=== PATIENT | male | born 1960 | race African-American/Black ===

== ENCOUNTER → 2017-02-17 | Outpatient (CLI) | payer BC ==
--- NOTE | 2017-02-17 08:40 | RAD ---
Indication:Abnormal liver function tests Grayscale images of the abdomen were obtained. Comparison none Liver:The visualized liver appeared unremarkable. Gallbladder:Occasional cholesterol crystals were seen. No cholelithiasis was seen. The common bile duct diameter of approximately 4 mm is normal Spleen:Largely obscured. Pancreas:That portion of the head and body of the pancreas which are seen appear unremarkable. The more distal body and tail were obscured Kidneys:Normal Abdominal aorta and IVC:As visualized normal Ancillary findings:None Impression:Cholesterol crystals. Nonvisualization of the spleen. No acute or definite significant findings seen in the abdomen
== END | disposition home or self-care (01) ==
LOC: US 06:23
PROVIDERS: ATTEND Internal Medicine
DX: R79.89 Other specified abnormal findings of blood chemistry (principal)
CPT/HCPCS: 76700

== ENCOUNTER → 2018-10-25 | Outpatient (CLI) | payer BC ==
[~2018-10-25] MED LIST: AMLO5TAB10 PO; CONTRAST GIVEN. MC PRN; HYDR-2761 PO; IOHEXOL 240 MG/ML 50ML VIAL. PO ONE; IOHEXOL 300 MG/ML 100ML VIAL. IV ONE; OXYC1TAB15 PO; PANT40TA77 PO; SUCR1TAB35 PO; TRAM100C3 PO; TRAM50TA PO
--- NOTE | 2018-10-26 09:37 | RAD ---
CT of the chest, abdomen and pelvis with contrast, 10/25/2018: HISTORY: Splenomegaly Multidetector CT imaging was performed following oral and IV administration of contrast. There is minimal calcific plaquing of the thoracic aorta without evidence of aneurysm. Minimal coronary artery calcification is present. No mediastinal or hilar adenopathy is seen. No pulmonary mass or consolidation is seen. There is no evidence of pleural fluid. There is a large mass in the left upper quadrant of the abdomen. It measures approximately 14.9 cm in greatest width, 11.3 cm in greatest AP dimension and 17.4 cm in craniocaudad extent. It is a predominately solid mass with a somewhat irregular central cystic component. It is displacing the stomach laterally and anteriorly. It cannot be from the posterior gastric wall. A gastric origin is thought to be most likely. The pancreatic body and tail cannot be from this mass. The mass does not appear to arise from the left kidney or spleen. No hepatic abnormality is detected. The gallbladder is unremarkable. The pancreatic head shows no abnormality. The kidneys show no intrinsic abnormality. There is a 1.8 cm left adrenal nodule. The right adrenal gland is unremarkable. There is mild aortoiliac calcific plaquing without evidence of aneurysm. No definite retroperitoneal, mesenteric or pelvic adenopathy is seen. The bowel loops are not dilated. Several small colonic diverticula are noted. There are prominent mesenteric veins in the upper abdomen demonstrate over this mass. No free air or free fluid is evident in the abdomen or pelvis. There are mild scattered degenerative changes in the spine. A small sclerotic focus in the right femoral head is probably a benign bone island. IMPRESSION: 1. Large left upper quadrant abdominal mass as described above. 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 A pancreatic origin is less likely. Endoscopic or CT-guided biopsy is suggested for further evaluation. 2. Mild nonspecific left adrenal enlargement. Note: Personnel in Dr. Valle's office were notified of these findings at 9:33 AM on 10/26/2018. PQRS Compliance Statement: One or more of the following individualized dose reduction techniques were utilized for this examination: 1. Automated exposure control 2. Adjustment of the mA and/or kV according to patient size 3. Use of iterative reconstruction technique Electronically signed by: Yahir Avery MD (10/26/2018 9:34 AM) [facility]
== END | disposition home or self-care (01) ==
LOC: CT 12:51
PROVIDERS: ATTEND Internal Medicine
DX: C49.A0 Gastrointestinal stromal tumor, unspecified site (principal); R16.1 Splenomegaly, not elsewhere classified; E27.9 Disorder of adrenal gland, unspecified
CPT/HCPCS: 71260; 74177; Q9966; Q9967

== ENCOUNTER 2018-11-14 11:00 | Inpatient (IN) | payer BC ==
[~2018-11-14] VITALS: Ht 188 cm; Wt 87.0 kg
[2018-11-14] VITALS (8 sets, daily range): BP systolic 102–132; BP diastolic 56–69
[~2018-11-14 11:00] MED LIST changes: -CONTRAST GIVEN. MC PRN; +DEXAMETHASONE SOD PHOS 20 MG/5 ML VIAL. ONE; +HYDROmorphone 2 MG/ML VIAL IV PRN; -IOHEXOL 240 MG/ML 50ML VIAL. PO ONE; -IOHEXOL 300 MG/ML 100ML VIAL. IV ONE; +IV RINGERS,LACTATED 1000ML 1,000 ML IV SCH; +LIDOCAINE 2% PF 5 ML VIAL. ONE; +MORPHINE SULFATE 2 MG/ML VIAL. IV PRN; +ONDANSETRON PF 4 MG/2 ML VIAL. IV PRN; +ONDANSETRON PF 4 MG/2 ML VIAL. ONE; -OXYC1TAB15 PO; +PHENYLEPHRINE in 0.9% NACL PF 1 MG/10 ML SYRINGE. IV ONE; +PROCHLORPERAZINE 10 MG/2 ML VIAL. IV PRN; +PROPOFOL 20 ML IV ONE; +ROCURONIUM 100 MG/10 ML VIAL. ONE; +ePHEDrine PF IN SALINE 50 MG/10 ML SYRINGE. IV ONE; +fentaNYL PF VIAL 100 MCG/2 ML VIAL IV PRN
--- NOTE | 2018-11-14 12:38 | PDOC ---
SURGICAL PROGRESS NOTE Subjective 58 yo M with large abd mass TO OR for resection, possible distal pancreatectomy, splenectomy, possible gastrectomy. R/R/B/A d/w pt and pt's supportive son in law and daughter. Risks, including, but not limited to: bleeding, infection, damage to surrounding structures, risk of anesthesia, risk of . They appear to understand, their questions are answered and they elect to proceed. Office note H&P reviewed and unchanged. Vital Signs Vital Signs Date Time Temp Pulse Resp B/P (MAP) Pulse Ox O2 Delivery O2 Flow Rate FiO2 11/14/18 11:42 97.6 115 20 130/80 98 97.6 SOLIS PARKER MD Nov 14, 2018 12:38
[2018-11-14] MEDS ORDERED: BUPIVACAINE MPF 0.25% 10 ML VIAL. ONE (12:46)
[2018-11-14] MEDS ORDERED: MIDAZOLAM HCL/PF 2 MG/2 ML VIAL. ONE (12:46)
[2018-11-14] MEDS ORDERED: NALOXONE 0.4 MG/ML VIAL. IV PRN ×2 (13:45→18:45)
[2018-11-14] MEDS ORDERED: ONDANSETRON PF 4 MG/2 ML VIAL. IV PRN ×2 (13:45→18:45)
[2018-11-14] MEDS ORDERED: diphenhydrAMINE 50 MG/ML VIAL IV PRN (13:45)
[2018-11-14] MEDS ORDERED: NALBUPHINE 10 MG/ML AMPUL. IV PRN (13:45)
[2018-11-14] MEDS ORDERED: SEVOFLURANE > 120 MINUTES. IH ONE (14:04)
[2018-11-14] MEDS ORDERED: BUPIVACAINE MPF 0.25% 30 ML VIAL. ONE (14:12)
[2018-11-14] MEDS ORDERED: ROCURONIUM 100 MG/10 ML VIAL. ONE (15:16)
[2018-11-14 15:19] LABS: BILIRUBIN,URINE SMALL (NEG); CLARITY,URINE CLEAR; COLOR,URINE YELLOW; NITRITE,URINE NEGATIVE (NEG); PROTEIN,URINE 100 mg/dL (NEG-TRACE); UROBILINOGEN,URINE 0.2 mg/dL (0.2 mg/dL)
[2018-11-14 15:26] LABS: BACTERIA,URINE 0 /HPF (0-FEW); HYALINE CASTS, URINE FEW /HPF; SQUAMOUS EPITHELIAL CELL,UR FEW /LPF
[2018-11-14] MEDS ORDERED: ALBUMIN HUMAN 5% 500 ML IV ONE ×2 (15:48→15:49)
[2018-11-14] MEDS ORDERED: cefOXitin SODIUM IV Push 2 GM VIAL. IVP PRN ×2 (16:00→18:00)
[2018-11-14] MEDS ORDERED: PHENYLEPHRINE in 0.9% NACL PF 1 MG/10 ML SYRINGE. IV ONE (16:14)
[2018-11-14] MEDS ORDERED: SURGICEL HEMOSTAT 4X8 EACH. ONE ×2 (16:15)
[2018-11-14 17:11] LABS: HEMATOCRIT 22.2 % (39.0-53.0); WHITE BLOOD COUNT 15.9 x10^3/uL (4.0-11.0)
[2018-11-14 17:13] LABS: HEMOGLOBIN 7.3 g/dL (13.0-17.5)
[2018-11-14] MEDS ORDERED: ONDANSETRON PF 4 MG/2 ML VIAL. ONE (17:17)
[2018-11-14] MEDS ORDERED: GLYCOPYRROLATE 1 MG/5 ML VIAL. ONE (17:19)
[2018-11-14] MEDS ORDERED: NEOSTIGMINE METHYLSULFATE 5 MG/5 ML SYRINGE. ONE (17:19)
--- NOTE | 2018-11-14 18:30 | NUR ---
Patient admitted to room 105 from surgery. Patient recovered from surgery in room. Hand off report received bedside from Ana Vick. VS wnl. Family at bedside. Will continue to monitor.
[2018-11-14] MEDS ORDERED: IV NORMAL SALINE 1000ML BAG 1,000 ML IV SCH (18:33)
[2018-11-14] MEDS ORDERED: 0.9 % SODIUM CHLORIDE 10 ML DISP.SYRIN. IV PRN (18:45)
--- NOTE | 2018-11-14 18:55 | PDOC4 ---
OPERATIVE NOTE Date: Date: Nov 14, 2018 Pre-Op Diagnosis: Left upper quadrant mass, large, neuroendocrine tumor (by biopsy) Post-Op Diagnosis: same Procedure Performed: Exploratory laparotomy, en bloc excision of large LUQ mass, distal pancreatectomy/splenectomy, ligation of inferior mesenteric vein Surgeon: Rogelio Parker Asst: Dr. Juvenal Jj Anesthesia Type: GETA Blood Loss: 2500 Specimans Obtained: LUQ mass, including spleen and distal pancreas, small mass overlying kidney, additional necrotic tissue Findings: large LUQ mass, appearing to originate from distal pancreas, but very adherent to posterior stomach, invading ligament of treitz/transverse mesocolon, gastrohepatic ligament Complications: none Operative Note: After obtaining informed consent, patient was taken to OR, induced under GETA and prepped in the usual fashion. Midline incision made with cautery. Large mass encountered in LUQ, posterior to stomach. Extensive congestion of venous structures in this area. An extensive dissection was performed, which was difficult throughout. Lesser sac entered by dividing omentum along the greater curvature, but maintaining vascular structures along the greater curve. Mass fill the lesser sac, very adherent, but not obviously invading: posterior stomach, gastrohepatic ligament, ligament of treitz, and appeared to originate from distal pancreas. Careful dissection off posterior stomach. 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 Ligasure used to take off attachments of the spleen and the mass to the retroperitoneum ( no obvious compromise of adrenal gland, kidney or associated vessels). Aorto maintained intact. Splenic flexure of colon closely associated with mass and carefully dissected off. Multiple serousal tears, inherent to procedure, repaired with 3 0 vicryl. Ligament of treitz widely involved by this process and was completely cleared. Distal duodenum carefully dissected off, without obvious violation. Inferior mesenteric vein intimately involved and was ultimately sacrificed and ligated with 0 vicryl stick tie. Pancreas at the neck and just to left of superior mesenteric vein was not involve and soft and viable. LACY stapler used to divide the neck. Splenic artery ligated with 0 vicryl stick tie. Splenic vein ligated with 3 0 prolene right at origin from SMV and was very engorged secondary to impingement by mass. Mass delivered and sent to pathology. No evidence of bleeding at this time. Surgicel placed on posterior stomach. Co pious irrigation. Small mass in retroperitoneal overlying kidney excised with ligasure. No other pathology noted. All viscera appeared to be viable and without injury. 19 JUAN drain placed in LUQ and secured with 2 0 nylon. Fascia repaired with 0 looped PDS. Skin repaired with 3 0 vicryl and 4 0 monocryl. Dressing placed. Patient tolerated procedure well and sent to ICU in stable condition (secondary to 4 u PRBCs). All counts correct. Wound class is 3. Difficult procedure throughout. SOLIS PARKER MD Nov 14, 2018 18:55
[2018-11-14] MEDS: IV RINGERS,LACTATED 1000ML 1,000 ML IV SCH (20:00)
[2018-11-14] MEDS: NORMAL SALINE 35 ML, fentaNYL PF VIAL 250 MCG, ROPIVacaine 0.5% PF 10 ML in EPIDURAL 50 TV EPID PRN (22:17)
[2018-11-14] MEDS: HEPARIN for SUB-Q USE 5,000 UNIT/ML VIAL. SQ SCH (22:20)
[2018-11-14] MEDS: FAMOTIDINE 20 MG/2 ML VIAL IVP SCH (22:20)
[2018-11-15] VITALS (20 sets, daily range): BP systolic 80–161; BP diastolic 61–92
[2018-11-15] MEDS: NORMAL SALINE 35 ML, fentaNYL PF VIAL 250 MCG, ROPIVacaine 0.5% PF 10 ML in EPIDURAL 50 TV EPID PRN ×6 (02:20→21:31)
[2018-11-15 07:08] LABS: BASO # 0.1 x10^3/uL (0.0-0.2); BASO % 1 % (0-3); EOS % 0 % (0-3); HEMATOCRIT 30.4 % (39.0-53.0); LYMPH # 1.9 x10^3/uL (1.0-4.8); LYMPH % 11 % (24-48); MEAN CORPUSCULAR HEMOGLOBIN 26 pg (25-35); MEAN CORPUSCULAR HGB CONC 34 g/dL (31-37); MEAN CORPUSCULAR VOLUME 78 fL (79-100); MONO # 1.2 x10^3/uL (0.0-1.1); MONO % 7 % (0-9); NEUT # 14.6 x10^3/uL (1.8-7.7); NEUT % 82 % (31-73); PLATELET COUNT 540 x10^3/uL (140-400); RED CELL DISTRIBUTION WIDTH 20.5 % (11.5-14.5); WHITE BLOOD COUNT 17.9 x10^3/uL (4.0-11.0)
[2018-11-15 07:26] LABS: CALCIUM 7.8 mg/dL (8.5-10.1); POTASSIUM 4.9 mmol/L (3.5-5.1)
[2018-11-15 07:31] LABS: HEMOGLOBIN 10.3 g/dL (13.0-17.5)
--- NOTE | 2018-11-15 07:44 | RAD ---
Indication: Postop exploratory laparotomy. TECHNIQUE: AP supine views of the abdomen and pelvis. COMPARISON: None FINDINGS: No abnormally dilated bowel loops. 2 catheters are seen projecting over the left upper quadrant. No abnormal metallic densities seen. Visualized bones are within normal limits. IMPRESSION: As above. Electronically signed by: Clive Owusu DO (11/15/2018 7:41 AM) [facility]
[2018-11-15] MEDS ORDERED: IV RINGERS,LACTATED 500ML 500 ML IV ONE (08:00)
[2018-11-15] MEDS: FAMOTIDINE 20 MG/2 ML VIAL IVP SCH ×2 (08:51→19:27)
[2018-11-15] MEDS: IV RINGERS,LACTATED 1000ML 1,000 ML IV SCH ×2 (08:51→20:59)
[2018-11-15] MEDS: HEPARIN for SUB-Q USE 5,000 UNIT/ML VIAL. SQ SCH ×2 (08:52→19:35)
--- NOTE | 2018-11-15 11:11 | NUR ---
NG tube clamped at 1111 hrs per surgery. Will continue to monitor
--- NOTE | 2018-11-15 11:26 | PDOC ---
SURGICAL PROGRESS NOTE Subjective pain incisional d/w nursing Vital Signs Vital Signs Date Time Temp Pulse Resp B/P (MAP) Pulse Ox O2 Delivery O2 Flow Rate FiO2 11/15/18 10:00 112 23 146/86 (106) 97 Room Air 11/15/18 08:00 99.6 99.6 11/15/18 02:20 8.0 I&O Intake and Output 11/15/18 06:59 Intake Total 9927 ml Output Total 3880 ml Balance 6047 ml Intake IV Total 9927 ml Output Urine Total 870 ml Drainage Total 510 ml Estimated Blood Loss 2500 ml PATIENT HAS A HILL: Yes General: Alert, Oriented X3, Cooperative, No acute distress HEENT: Other (NG present) Abdomen: Soft, Other (ND, dressing dry) Labs Laboratory Tests Test 11/14/18 13:59 11/14/18 17:00 11/15/18 07:00 Urine Collection Type U cath Urine Color Yellow Urine Clarity Clear Urine pH 6.0 Urine Specific [place] 1.025 Urine Protein 100 mg/dL (NEG-TRACE) Urine Glucose (UA) Negative mg/dL (NEG) Urine Ketones (Stick) Trace mg/dL (NEG) Urine Blood Negative (NEG) Urine Nitrite Negative (NEG) Urine Bilirubin Small (NEG) Urine Urobilinogen Dipstick 0.2 mg/dL (0.2 mg/dL) Urine Leukocyte Esterase Negative (NEG) Urine RBC 1-2 /HPF (0-2) Urine WBC 1-4 /HPF (0-4) Urine Squamous Epithelial Cells Few /LPF Urine Bacteria 0 /HPF (0-FEW) Urine Hyaline Casts Few /HPF Urine Mucus Mod /LPF White Blood Count 15.9 x10^3/uL (4.0-11.0) 17.9 x10^3/uL (4.0-11.0) Hemoglobin 7.3 g/dL (13.0-17.5) 10.3 g/dL (13.0-17.5) Hematocrit 22.2 % (39.0-53.0) 30.4 % (39.0-53.0) Platelet Count 468 x10^3/uL (140-400) 540 x10^3/uL (140-400) Red Blood Count 3.90 x10^6/uL (4.30-5.70) Mean Corpuscular Volume 78 fL (79-100) Mean Corpuscular Hemoglobin 26 pg (25-35) Mean Corpuscular Hemoglobin Concent 34 g/dL (31-37) Red Cell Distribution Width 20.5 % (11.5-14.5) Neutrophils (%) (Auto) 82 % (31-73) Lymphocytes (%) (Auto) 11 % (24-48) Monocytes (%) (Auto) 7 % (0-9) Eosinophils (%) (Auto) 0 % (0-3) Basophils (%) (Auto) 1 % (0-3) Neutrophils # (Auto) 14.6 x10^3/uL (1.8-7.7) Lymphocytes # (Auto) 1.9 x10^3/uL (1.0-4.8) Monocytes # (Auto) 1.2 x10^3/uL (0.0-1.1) Eosinophils # (Auto) 0.0 x10^3/uL (0.0-0.7) Basophils # (Auto) 0.1 x10^3/uL (0.0-0.2) Sodium Level 136 mmol/L (136-145) Potassium Level 4.9 mmol/L (3.5-5.1) Chloride Level 102 mmol/L (98-107) Carbon Dioxide Level 22 mmol/L (21-32) Anion Gap 12 (6-14) Blood Urea Nitrogen 14 mg/dL (8-26) Creatinine 2.0 mg/dL (0.7-1.3) Estimated GFR (Cockcroft-Gault) 42.0 Glucose Level 145 mg/dL (70-99) Calcium Level 7.8 mg/dL (8.5-10.1) Laboratory Tests Test 11/14/18 13:59 11/14/18 17:00 11/15/18 07:00 Urine Collection Type U cath Urine Color Yellow Urine Clarity Clear Urine pH 6.0 Urine Specific [place] 1.025 Urine Protein 100 mg/dL (NEG-TRACE) Urine Glucose (UA) Negative mg/dL (NEG) Urine Ketones (Stick) Trace mg/dL (NEG) Urine Blood Negative (NEG) Urine Nitrite Negative (NEG) Urine Bilirubin Small (NEG) Urine Urobilinogen Dipstick 0.2 mg/dL (0.2 mg/dL) Urine Leukocyte Esterase Negative (NEG) Urine RBC 1-2 /HPF (0-2) Urine WBC 1-4 /HPF (0-4) Urine Squamous Epithelial Cells Few /LPF Urine Bacteria 0 /HPF (0-FEW) Urine Hyaline Casts Few /HPF Urine Mucus Mod /LPF White Blood Count 15.9 x10^3/uL (4.0-11.0) 17.9 x10^3/uL (4.0-11.0) Hemoglobin 7.3 g/dL (13.0-17.5) 10.3 g/dL (13.0-17.5) Hematocrit 22.2 % (39.0-53.0) 30.4 % (39.0-53.0) Platelet Count 468 x10^3/uL (140-400) 540 x10^3/uL (140-400) Red Blood Count 3.90 x10^6/uL (4.30-5.70) Mean Corpuscular Volume 78 fL (79-100) Mean Corpuscular Hemoglobin 26 pg (25-35) Mean Corpuscular Hemoglobin Concent 34 g/dL (31-37) Red Cell Distribution Width 20.5 % (11.5-14.5) Neutrophils (%) (Auto) 82 % (31-73) Lymphocytes (%) (Auto) 11 % (24-48) Monocytes (%) (Auto) 7 % (0-9) Eosinophils (%) (Auto) 0 % (0-3) Basophils (%) (Auto) 1 % (0-3) Neutrophils # (Auto) 14.6 x10^3/uL (1.8-7.7) Lymphocytes # (Auto) 1.9 x10^3/uL (1.0-4.8) Monocytes # (Auto) 1.2 x10^3/uL (0.0-1.1) Eosinophils # (Auto) 0.0 x10^3/uL (0.0-0.7) Basophils # (Auto) 0.1 x10^3/uL (0.0-0.2) Sodium Level 136 mmol/L (136-145) Potassium Level 4.9 mmol/L (3.5-5.1) Chloride Level 102 mmol/L (98-107) Carbon Dioxide Level 22 mmol/L (21-32) Anion Gap 12 (6-14) Blood Urea Nitrogen 14 mg/dL (8-26) Creatinine 2.0 mg/dL (0.7-1.3) Estimated GFR (Cockcroft-Gault) 42.0 Glucose Level 145 mg/dL (70-99) Calcium Level 7.8 mg/dL (8.5-10.1) Assessment/Plan s/p xlap clamp NG epidural for pain management fluid bolus this AM-BP stable, tachy(mild improvement) LEW PHILIPPE DETAIL ASSEMBLER Nov 15, 2018 11:26
[2018-11-15 11:42] LABS: % BANDS 1 % (0-9); % LYMPHS 12 % (24-48); % MONOS 6 % (0-10); % SEGS 81 % (35-66); NUCLEATED RBC 1; PLT ESTIMATE INCREASED (ADEQUATE)
[2018-11-15 11:43] LABS: ANISOCYTOSIS SLIGHT
--- NOTE | 2018-11-15 14:33 | NUR ---
Removed NG tube per Dr Aleman at 1420.
[2018-11-15] MEDS ORDERED: NORMAL SALINE 35 ML, fentaNYL PF VIAL 250 MCG, ROPIVacaine 0.5% PF 10 ML in EPIDURAL 50 TV EPID PRN (14:45)
--- NOTE | 2018-11-15 15:38 | NUR ---
SS following for discharge planning. SS reviewed pt chart. Pt is from home and is currently on room air. No discharge needs noted at this time. SS will continue to follow for discharge planning.
--- NOTE | 2018-11-15 16:20 | PDOC ---
Provider Note Provider Note Pt seen this am,consult dictated.PCP f/u. #[id number]. LUCA MART MD Nov 15, 2018 16:20
[2018-11-15] MEDS: KETOROLAC 30 MG/ML VIAL. IV PRN (19:28)
[2018-11-16] MEDS: NORMAL SALINE 35 ML, fentaNYL PF VIAL 250 MCG, ROPIVacaine 0.5% PF 10 ML in EPIDURAL 50 TV EPID PRN (03:36)
[2018-11-16 03:49] VITALS: BP 126/85
--- NOTE | 2018-11-16 04:49 | CONS ---
DATE OF CONSULTATION: LOCATION: 105. REASON FOR ADMISSION TO THE HOSPITAL: Elective admission for a large abdominal mass. REASON FOR CONSULTATION: Primary care followup for hypertension. HISTORY OF PRESENT ILLNESS: The patient is a 58-year-old male patient who was admitted 2 weeks ago to [facility] for abdominal pain and a palpable abdominal mass. The patient had a CT scan and bone scan and also history of a large pancreatic mass. The patient has seen Dr. Aleman scheduled for surgery. The patient is admitted electively for an exploratory laparotomy, removal of abdominal mass. I was asked to see postop for primary care followup as well as hypertension. PAST MEDICAL HISTORY: As mentioned has a history of hypertension, gastric ulcer, gastritis. PAST SURGICAL HISTORY: Had an EGD and colonoscopy last year. Again, an EGD this year 2 weeks ago. ALLERGIES: None. MEDICATIONS AT HOME: Amlodipine, Protonix, Carafate, and Tramadol. SOCIAL HISTORY: Smokes [address]. FAMILY HISTORY: Unremarkable. REVIEW OF SYMPTOMS: He complains of abdominal pain on and off. 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 VITAL SIGNS: Temperature is 97, pulse 115, respirations 20, blood pressure 130/80. HEENT: Head is atraumatic. Pupils equal. Oral cavity: The patient has a NG tube. NECK: Supple. CHEST: Symmetrical. CARDIOVASCULAR: S1, S2. ABDOMEN: Has a dressing present. EXTERNAL GENITALIA: Shrestha. RECTAL: Deferred. EXTREMITIES: No calf tenderness, no edema. LABORATORY DATA: Shows a white count of 16, hemoglobin 10, platelets 540, sodium 136, potassium 4.9, chloride 102, bicarb 22, BUN 14, creatinine 2.0. UA was negative. FINAL IMPRESSION: 1. Large abdominal mass. The patient underwent distal pancreatectomy, splenectomy. 2. Hypertension. 3. History of Helicobacter pylori gastritis. PLAN: At this time postop doing relatively well and [employer] INTERPRETIVE SPECIALIST pain control, IV fluids. Thank you, Dr. Aleman for allowing me to participate in the care of this patient. I will follow with you. LUCA MART MD DR: ADDISON/radha JOB#: [id number] / [id number]
[2018-11-16 04:58] LABS: BASO # 0.1 x10^3/uL (0.0-0.2); BASO % 0 % (0-3); EOS % 0 % (0-3); HEMATOCRIT 23.1 % (39.0-53.0); HEMOGLOBIN 7.8 g/dL (13.0-17.5); LYMPH # 2.2 x10^3/uL (1.0-4.8); LYMPH % 12 % (24-48); MEAN CORPUSCULAR HEMOGLOBIN 27 pg (25-35); MEAN CORPUSCULAR HGB CONC 34 g/dL (31-37); MEAN CORPUSCULAR VOLUME 79 fL (79-100); MONO # 1.3 x10^3/uL (0.0-1.1); MONO % 7 % (0-9); NEUT # 14.4 x10^3/uL (1.8-7.7); NEUT % 80 % (31-73); PLATELET COUNT 513 x10^3/uL (140-400); RED BLOOD COUNT 2.94 x10^6/uL (4.30-5.70); RED CELL DISTRIBUTION WIDTH 20.8 % (11.5-14.5)
[2018-11-16 05:18] LABS: ALBUMIN 1.7 g/dL (3.4-5.0); ALBUMIN/GLOBULIN RATIO 0.4 (1.0-1.7); CALCIUM 7.7 mg/dL (8.5-10.1); CREATININE 2.1 mg/dL (0.7-1.3); GFR 39.7; POTASSIUM 4.3 mmol/L (3.5-5.1); TOTAL BILIRUBIN 0.4 mg/dL (0.2-1.0); TOTAL PROTEIN 5.5 g/dL (6.4-8.2)
[2018-11-16] MEDS: IV RINGERS,LACTATED 1000ML 1,000 ML IV SCH ×2 (05:47→14:41)
[2018-11-16 07:51] VITALS: BP 120/68
[2018-11-16] MEDS: HEPARIN for SUB-Q USE 5,000 UNIT/ML VIAL. SQ SCH ×2 (08:56→20:22)
[2018-11-16] MEDS: FAMOTIDINE 20 MG/2 ML VIAL IVP SCH ×2 (09:04→20:08)
--- NOTE | 2018-11-16 09:54 | PDOC ---
PROGRESS NOTES Subjective Subjective moved out of icu , Objective Objective Vital Signs Date Time Temp Pulse Resp B/P (MAP) Pulse Ox O2 Delivery O2 Flow Rate FiO2 11/16/18 07:51 98.9 95 16 120/68 (85) 95 Room Air 98.9 11/15/18 17:58 2.0 Intake and Output 11/16/18 07:00 Intake Total 200 ml Output Total 1260 ml Balance -1060 ml Intake Oral 200 ml Output Urine Total 1110 ml Drainage Total 150 ml Physical Exam Abdomen: Soft, Other (ND, dressing dry) General: Alert, Oriented X3, Cooperative, No acute distress HEENT: Other (NG present) MUSCULOSKELETAL: No deformity, No swelling COMMENT gipson Assessment Assessment FINAL IMPRESSION:POD#2 1. 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 2. Hypertension. 3. History of Helicobacter pylori gastritis. 4. Ac kidney insufficiency PLAN: POD#2. clear liquids iv fluid s wire frame lampshade maker cr 2.1 wbc 18 reactive. At this time postop doing relatively well and PODIATRY TEACHER pain control, IV fluids. Thank you, Dr. Aleman for allowing me to participate in the care of this patient. I will follow with you. Comment Review of Relevant I have reviewed the following items yariel (where applicable) has been applied. Labs Laboratory Tests Test 11/16/18 03:50 White Blood Count 18.0 x10^3/uL (4.0-11.0) Red Blood Count 2.94 x10^6/uL (4.30-5.70) Hemoglobin 7.8 g/dL (13.0-17.5) Hematocrit 23.1 % (39.0-53.0) Mean Corpuscular Volume 79 fL (79-100) Mean Corpuscular Hemoglobin 27 pg (25-35) Mean Corpuscular Hemoglobin Concent 34 g/dL (31-37) Red Cell Distribution Width 20.8 % (11.5-14.5) Platelet Count 513 x10^3/uL (140-400) Neutrophils (%) (Auto) 80 % (31-73) Lymphocytes (%) (Auto) 12 % (24-48) Monocytes (%) (Auto) 7 % (0-9) Eosinophils (%) (Auto) 0 % (0-3) Basophils (%) (Auto) 0 % (0-3) Neutrophils # (Auto) 14.4 x10^3/uL (1.8-7.7) Lymphocytes # (Auto) 2.2 x10^3/uL (1.0-4.8) Monocytes # (Auto) 1.3 x10^3/uL (0.0-1.1) Eosinophils # (Auto) 0.0 x10^3/uL (0.0-0.7) Basophils # (Auto) 0.1 x10^3/uL (0.0-0.2) Sodium Level 137 mmol/L (136-145) Potassium Level 4.3 mmol/L (3.5-5.1) Chloride Level 103 mmol/L (98-107) Carbon Dioxide Level 27 mmol/L (21-32) Anion Gap 7 (6-14) Blood Urea Nitrogen 14 mg/dL (8-26) Creatinine 2.1 mg/dL (0.7-1.3) Estimated GFR (Cockcroft-Gault) 39.7 BUN/Creatinine Ratio 7 (6-20) Glucose Level 128 mg/dL (70-99) Calcium Level 7.7 mg/dL (8.5-10.1) Total Bilirubin 0.4 mg/dL (0.2-1.0) Aspartate Amino Transf (AST/SGOT) 26 U/L (15-37) Alanine Aminotransferase (ALT/SGPT) 12 U/L (16-63) Alkaline Phosphatase 76 U/L (46-116) Total Protein 5.5 g/dL (6.4-8.2) Albumin 1.7 g/dL (3.4-5.0) Albumin/Globulin Ratio 0.4 (1.0-1.7) Medications Current Medications Sodium Chloride 35 ml/Fentanyl Citrate 250 mcg/ Ropivacaine 10 ml/ Epidural Dosage Infused (Pha) 50 ml @ 0 mls/hr CONT PRN EPID SEE PROTOCOL TABLE; Start 11/15/18 at 14:45; Stop 11/15/18 at 15:10; Status DC Sodium Chloride 35 ml/Fentanyl Citrate 250 mcg/ Ropivacaine 10 ml/ Epidural Dosage Infused (Pha) 50 ml @ 0 mls/hr CONT PRN EPID SEE PROTOCOL TABLE Last administered on 11/16/18at 03:36; Start 11/15/18 at 15:15 Vitals/I & O Vital Sign - Last 24 Hours 11/15/18 11/15/18 11/15/18 11/15/18 10:00 11:00 11:37 12:00 Pulse 112 115 Resp 24 B/P (MAP) 146/86 (106) 161/87 (111) Pulse Ox 97 97 97 O2 Delivery Room Air Room Air Room Air Room Air 11/15/18 11/15/18 11/15/18 11/15/18 12:00 12:23 13:00 14:00 Temp 100.7 100.7 Pulse 118 116 115 Resp 22 23 B/P (MAP) 132/82 (99) 140/82 (101) 136/77 (96) Pulse Ox 97 98 97 97 O2 Delivery Room Air Room Air Room Air Room Air 11/15/18 11/15/18 11/15/18 11/15/18 15:00 15:39 16:00 16:09 Temp 100.3 100.3 Pulse 121 120 Resp 17 18 B/P (MAP) 133/77 (95) 140/75 (96) Pulse Ox 97 94 97 97 O2 Delivery Room Air Room Air Room Air O2 Flow Rate 8.0 11/15/18 11/15/18 11/15/18 11/15/18 16:53 17:58 19:41 20:00 Temp 101.0 101.4 101.0 101.4 Pulse 123 114 Resp 18 16 B/P (MAP) 136/74 (94) 123/75 (91) Pulse Ox 87 90 96 O2 Delivery Room Air Nasal Cannula Room Air Room Air O2 Flow Rate 2.0 11/15/18 11/15/18 11/15/18 11/16/18 21:25 21:31 23:33 03:36 Temp 99.8 99.4 99.8 99.4 Pulse 97 Resp 16 B/P (MAP) 124/81 (95) Pulse Ox 95 O2 Delivery Room Air Room Air Room Air 11/16/18 11/16/18 11/16/18 03:49 04:06 07:51 Temp 99.2 98.9 99.2 98.9 Pulse 65 95 Resp 16 16 B/P (MAP) 126/85 (99) 120/68 (85) Pulse Ox 96 95 O2 Delivery Room Air Room Air Room Air Intake and Output 11/15/18 11/15/18 11/16/18 15:00 23:00 07:00 Intake Total 200 ml Output Total 650 ml 160 ml 450 ml Balance -650 ml 40 ml -450 ml LUCA MART MD Nov 16, 2018 09:54
--- NOTE | 2018-11-16 10:07 | PDOC2 ---
CONSULT Date of Consult Date of Consult DATE: 11/16/18 TIME: 10:05 Reason for Consult Reason for Consult: RADHA Source Source: Chart review, Patient History of Present Illness Reason for Visit: Pt is a 58 yo AAM - elective admission for a large abdominal mass. He was admitted 2 weeks ago to [facility] for abdominal pain and a palpable abdominal mass CT scan and bone scan and also history of a large pancreatic mass. The patient has seen Dr. Aleman scheduled for surgery. S/P exploratory laparotomy, removal of abdominal mass. Nephrology consulted for RADHA . Pt denies any decrease in UOP, has foly. No N/V or diarrhea Past Medical History GI: GERD Past Surgical History Past Surgical History: No pertinent history Family History Family History: Diabetes Social History ALCOHOL: occassional Drugs: None Lives: Alone Current Medications Current Medications Current Medications Ondansetron HCl (Zofran) 4 mg PRN Q6HRS PRN IV NAUSEA/VOMITING; Start 11/14/18 at 07:00; Stop 11/14/18 at 23:00; Status DC Fentanyl Citrate (Fentanyl 2ml Vial) 25 mcg PRN Q5MIN PRN IV MILD PAIN 1-3; Start 11/14/18 at 07:00; Stop 11/14/18 at 23:00; Status DC Fentanyl Citrate (Fentanyl 2ml Vial) 50 mcg PRN Q5MIN PRN IV MODERATE TO SEVERE PAIN; Start 11/14/18 at 07:00; Stop 11/14/18 at 23:00; Status DC Morphine Sulfate (Morphine Sulfate) 1 mg PRN Q10MIN PRN IV SEVERE PAIN 7-10; Start 11/14/18 at 07:00; Stop 11/14/18 at 23:00; Status DC Ringer's Solution 1,000 ml @ 30 mls/hr Q24H IV Last administered on 11/14/18at 11:42; Start 11/14/18 at 07:00; Stop 11/14/18 at 18:59; Status DC Hydromorphone HCl (Dilaudid) 0.5 mg PRN Q10MIN PRN IV SEV PAIN, Second choice; Start 11/14/18 at 07:00; Stop 11/14/18 at 23:00; Status DC Prochlorperazine Edisylate (Compazine) 5 mg PACU PRN PRN IV NAUSEA, MRX1; Start 11/14/18 at 07:00; Stop 11/14/18 at 23:00; Status DC Cefazolin Sodium/ Dextrose 50 ml @ 100 mls/hr 1X ONCE IV Last administered on 11/14/18at 13:17; Start 11/14/18 at 06:00; Stop 11/14/18 at 06:29; Status DC Propofol 20 ml @ As Directed STK-MED ONCE IV ; Start 11/14/18 at 10:27; Stop 11/14/18 at 10:28; Status DC Lidocaine HCl (Lidocaine Pf 2% Vial) 5 ml STK-MED ONCE .ROUTE ; Start 11/14/18 at 10:27; Stop 11/14/18 at 10:28; Status DC Rocuronium [place] (Zemuron) 100 mg STK-MED ONCE .ROUTE ; Start 11/14/18 at 10:27; Stop 11/14/18 at 10:28; Status DC Dexamethasone Sodium Phosphate (Decadron) 20 mg STK-MED ONCE .ROUTE ; Start 11/14/18 at 10:28; Stop 11/14/18 at 10:29; Status DC Ondansetron HCl (Zofran) 4 mg STK-MED ONCE .ROUTE ; Start 11/14/18 at 10:28; Stop 11/14/18 at 10:29; Status DC Ephedrine Sulfate (ePHEDrine PF IN SALINE SYRINGE) 50 mg STK-MED ONCE IV ; Start 11/14/18 at 10:28; Stop 11/14/18 at 10:29; Status DC Phenylephrine HCl (PHENYLEPHRINE in 0.9% NACL PF) 1 mg STK-MED ONCE IV ; Start 11/14/18 at 10:28; Stop 11/14/18 at 10:29; Status DC Midazolam HCl (Versed) 2 mg STK-MED ONCE .ROUTE ; Start 11/14/18 at 12:46; Stop 11/14/18 at 12:47; Status DC Bupivacaine HCl (Sensorcaine-Mpf 0.25%) 10 ml STK-MED ONCE .ROUTE ; Start 11/14/18 at 12:46; Stop 11/14/18 at 12:47; Status DC Ketorolac Tromethamine (Toradol 30mg Vial) 30 mg PRN Q6HRS PRN IV PAIN Last administered on 11/15/18at 19:28; Start 11/14/18 at 13:00; Stop 11/19/18 at 12:59 Sodium Chloride 35 ml/Fentanyl Citrate 250 mcg/ Ropivacaine 10 ml/ Epidural Dosage Infused (Pha) 50 ml @ 0 mls/hr CONT PRN EPID SEE PROTOCOL TABLE Last administered on 11/15/18at 11:37; Start 11/14/18 at 14:00; Stop 11/15/18 at 14:43; Status DC Naloxone HCl (Narcan) 0.1 mg PRN 1X PRN IV RESP DEPRESSION, MRX1; Start 11/14/18 at 13:45; Stop 11/14/18 at 18:46; Status DC Ondansetron HCl (Zofran) 4 mg PRN Q6HRS PRN IV NAUSEA; Start 11/14/18 at 13:45; Stop 11/14/18 at 18:46; Status DC Nalbuphine HCl (Nubain) 5 mg PRN Q6HRS PRN IV ITCHING; Start 11/14/18 at 13:45 Diphenhydramine HCl (Benadryl) 25 mg PRN Q6HRS PRN IV ITCHING UNCONTROLLED BY NUBAIN; Start 11/14/18 at 13:45 Sevoflurane (Ultane) 90 ml STK-MED ONCE IH ; Start 11/14/18 at 14:04; Stop 11/14/18 at 14:05; Status DC Bupivacaine HCl (Sensorcaine Mpf 0.25%) 30 ml STK-MED ONCE .ROUTE ; Start 11/14/18 at 14:12; Stop 11/14/18 at 14:13; Status DC Rocuronium [place] (Zemuron) 100 mg STK-MED ONCE .ROUTE ; Start 11/14/18 at 15:16; Stop 11/14/18 at 15:17; Status DC Cefoxitin Sodium (Mefoxin) 2 gm 1X PREOP PRN IVP SURGERY; Start 11/14/18 at 16:00; Stop 11/14/18 at 18:39; Status DC Albumin Human 500 ml @ As Directed STK-MED ONCE IV ; Start 11/14/18 at 15:48; Stop 11/14/18 at 15:49; Status DC Albumin Human 500 ml @ As Directed STK-MED ONCE IV ; Start 11/14/18 at 15:49; Stop 11/14/18 at 15:50; Status DC Phenylephrine HCl (PHENYLEPHRINE in 0.9% NACL PF) 1 mg STK-MED ONCE IV ; Start 11/14/18 at 16:14; Stop 11/14/18 at 16:15; Status DC Cellulose (Surgicel Hemostat 4x8) 1 each STK-MED ONCE .ROUTE Last administered on 11/14/18at 17:20; Start 11/14/18 at 16:15; Stop 11/14/18 at 17:15; Status DC Cellulose (Surgicel Hemostat 4x8) 1 each STK-MED ONCE .ROUTE ; Start 11/14/18 at 16:15; Stop 11/14/18 at 17:15; Status DC Ondansetron HCl (Zofran) 4 mg STK-MED ONCE .ROUTE ; Start 11/14/18 at 17:17; Stop 11/14/18 at 17:18; Status DC Cefoxitin Sodium (Mefoxin) 2 gm 1X PREOP PRN IVP SURGERY; Start 11/14/18 at 1 8:00; Stop 11/14/18 at 20:00; Status DC Neostigmine Methylsulfate (Neostigmine Methylsulfate) 5 mg STK-MED ONCE .ROUTE ; Start 11/14/18 at 17:19; Stop 11/14/18 at 17:20; Status DC Glycopyrrolate (Robinul) 1 mg STK-MED ONCE .ROUTE ; Start 11/14/18 at 17:19; Stop 11/14/18 at 17:20; Status DC Famotidine (Pepcid Vial) 20 mg BID IVP Last administered on 11/16/18at 09:04; Start 11/14/18 at 21:00 Heparin Sodium (Porcine) (Heparin Sodium) 5,000 unit Q12HR SQ Last administered on 11/16/18at 08:56; Start 11/14/18 at 22:00 Sodium Chloride (Normal Saline Flush) 3 ml QSHIFT PRN IV AFTER MEDS AND BLOOD DRAWS; Start 11/14/18 at 18:45 Ringer's Solution 1,000 ml @ 100 mls/hr Q10H IV Last administered on 11/16/18at 05:47; Start 11/14/18 at 20:00 Naloxone HCl (Narcan) 0.4 mg PRN Q2MIN PRN IV SEE INSTRUCTIONS; Start 11/14/18 at 18:45 Sodium Chloride 1,000 ml @ 25 mls/hr Q24H IV ; Start 11/14/18 at 18:33; Status UNV Ondansetron HCl (Zofran) 4 mg PRN Q6HRS PRN IV NAUESA, 1ST CHOICE; Start 11/14/18 at 18:45 Ringer's Solution 500 ml @ 500 mls/hr 1X ONCE IV Last administered on 11/15/18at 08:08; Start 11/15/18 at 08:00; Stop 11/15/18 at 08:59; Status DC Sodium Chloride 35 ml/Fentanyl Citrate 250 mcg/ Ropivacaine 10 ml/ Epidural Dosage Infused (Pha) 50 ml @ 0 mls/hr CONT PRN EPID SEE PROTOCOL TABLE; Start 11/15/18 at 14:45; Stop 11/15/18 at 15:10; Status DC Sodium Chloride 35 ml/Fentanyl Citrate 250 mcg/ Ropivacaine 10 ml/ Epidural Dosage Infused (Pha) 50 ml @ 0 mls/hr CONT PRN EPID SEE PROTOCOL TABLE Last administered on 11/16/18at 03:36; Start 11/15/18 at 15:15 Active Scripts Active Reported Tramadol Hcl 50 Mg Tablet 50 Mg PO DAILY PRN Carafate (Sucralfate) 1 Gm Tablet 1 Tab PO TIDAC Amlodipine Besylate 5 Mg Tablet 5 Mg PO DAILY Protonix (Pantoprazole Sodium) 40 Mg Tablet.dr 40 Mg PO DAILYAC Allergies Allergies: Coded Allergies: No Known Drug Allergies (Unverified , 11/14/18) ROS Review of System Per HPI Physical Exam Physical Exam GENERAL: NAD, Sitting up in chair HEENT: OM moist NECK: Supple. LUNGS: CTA bilat Non labored CARDIOVASCULAR: S1, S2. ABDOMEN: soft, NT : Shrestha+ EXT: no edema Vital Signs Vital Signs Date Time Temp Pulse Resp B/P (MAP) Pulse Ox O2 Delivery O2 Flow Rate FiO2 11/16/18 07:51 98.9 95 16 120/68 (85) 95 Room Air 98.9 11/15/18 17:58 2.0 Assessment & Plan RADHA - ATN Baseline Cr was normal, UA unremarkable Renal US , IVF, avoid nephrotoxins , Supportive care Large abdominal mass s/p distal pancreatectomy,splenectomy. Hypertension. History of Helicobacter pylori gastritis. Discussed A/P with Pt Labs Labs Laboratory Tests Test 11/14/18 13:59 11/14/18 17:00 11/15/18 07:00 11/16/18 03:50 Urine Collection Type U cath Urine Color Yellow Urine Clarity Clear Urine pH 6.0 Urine Specific [place] 1.025 Urine Protein 100 mg/dL (NEG-TRACE) Urine Glucose (UA) Negative mg/dL (NEG) Urine Ketones (Stick) Trace mg/dL (NEG) Urine Blood Negative (NEG) Urine Nitrite Negative (NEG) Urine Bilirubin Small (NEG) Urine Urobilinogen Dipstick 0.2 mg/dL (0.2 mg/dL) Urine Leukocyte Esterase Negative (NEG) Urine RBC 1-2 /HPF (0-2) Urine WBC 1-4 /HPF (0-4) Urine Squamous Epithelial Cells Few /LPF Urine Bacteria 0 /HPF (0-FEW) Urine Hyaline Casts Few /HPF Urine Mucus Mod /LPF White Blood Count 15.9 x10^3/uL (4.0-11.0) 17.9 x10^3/uL (4.0-11.0) 18.0 x10^3/uL (4.0-11.0) Hemoglobin 7.3 g/dL (13.0-17.5) 10.3 g/dL (13.0-17.5) 7.8 g/dL (13.0-17.5) Hematocrit 22.2 % (39.0-53.0) 30.4 % (39.0-53.0) 23.1 % (39.0-53.0) Platelet Count 468 x10^3/uL (140-400) 540 x10^3/uL (140-400) 513 x10^3/uL (140-400) Red Blood Count 3.90 x10^6/uL (4.30-5.70) 2.94 x10^6/uL (4.30-5.70) Mean Corpuscular Volume 78 fL (79-100) 79 fL (79-100) Mean Corpuscular Hemoglobin 26 pg (25-35) 27 pg (25-35) Mean Corpuscular Hemoglobin Concent 34 g/dL (31-37) 34 g/dL (31-37) Red Cell Distribution Width 20.5 % (11.5-14.5) 20.8 % (11.5-14.5) Neutrophils (%) (Auto) 82 % (31-73) 80 % (31-73) Lymphocytes (%) (Auto) 11 % (24-48) 12 % (24-48) Monocytes (%) (Auto) 7 % (0-9) 7 % (0-9) Eosinophils (%) (Auto) 0 % (0-3) 0 % (0-3) Basophils (%) (Auto) 1 % (0-3) 0 % (0-3) Neutrophils # (Auto) 14.6 x10^3/uL (1.8-7.7) 14.4 x10^3/uL (1.8-7.7) Lymphocytes # (Auto) 1.9 x10^3/uL (1.0-4.8) 2.2 x10^3/uL (1.0-4.8) Monocytes # (Auto) 1.2 x10^3/uL (0.0-1.1) 1.3 x10^3/uL (0.0-1.1) Eosinophils # (Auto) 0.0 x10^3/uL (0.0-0.7) 0.0 x10^3/uL (0.0-0.7) Basophils # (Auto) 0.1 x10^3/uL (0.0-0.2) 0.1 x10^3/uL (0.0-0.2) Segmented Neutrophils % 81 % (35-66) Band Neutrophils % 1 % (0-9) Lymphocytes % 12 % (24-48) Monocytes % 6 % (0-10) Nucleated Red Blood Cells 1 Platelet Estimate Increased (ADEQUATE) Anisocytosis Slight Sodium Level 136 mmol/L (136-145) 137 mmol/L (136-145) Potassium Level 4.9 mmol/L (3.5-5.1) 4.3 mmol/L (3.5-5.1) Chloride Level 102 mmol/L (98-107) 103 mmol/L (98-107) Carbon Dioxide Level 22 mmol/L (21-32) 27 mmol/L (21-32) Anion Gap 12 (6-14) 7 (6-14) Blood Urea Nitrogen 14 mg/dL (8-26) 14 mg/dL (8-26) Creatinine 2.0 mg/dL (0.7-1.3) 2.1 mg/dL (0.7-1.3) Estimated GFR (Cockcroft-Gault) 42.0 39.7 Glucose Level 145 mg/dL (70-99) 128 mg/dL (70-99) Calcium Level 7.8 mg/dL (8.5-10.1) 7.7 mg/dL (8.5-10.1) BUN/Creatinine Ratio 7 (6-20) Total Bilirubin 0.4 mg/dL (0.2-1.0) Aspartate Amino Transf (AST/SGOT) 26 U/L (15-37) Alanine Aminotransferase (ALT/SGPT) 12 U/L (16-63) Alkaline Phosphatase 76 U/L (46-116) Total Protein 5.5 g/dL (6.4-8.2) Albumin 1.7 g/dL (3.4-5.0) Albumin/Globulin Ratio 0.4 (1.0-1.7) Laboratory Tests Test 11/16/18 03:50 White Blood Count 18.0 x10^3/uL (4.0-11.0) Red Blood Count 2.94 x10^6/uL (4.30-5.70) Hemoglobin 7.8 g/dL (13.0-17.5) Hematocrit 23.1 % (39.0-53.0) Mean Corpuscular Volume 79 fL (79-100) Mean Corpuscular Hemoglobin 27 pg (25-35) Mean Corpuscular Hemoglobin Concent 34 g/dL (31-37) Red Cell Distribution Width 20.8 % (11.5-14.5) Platelet Count 513 x10^3/uL (140-400) Neutrophils (%) (Auto) 80 % (31-73) Lymphocytes (%) (Auto) 12 % (24-48) Monocytes (%) (Auto) 7 % (0-9) Eosinophils (%) (Auto) 0 % (0-3) Basophils (%) (Auto) 0 % (0-3) Neutrophils # (Auto) 14.4 x10^3/uL (1.8-7.7) Lymphocytes # (Auto) 2.2 x10^3/uL (1.0-4.8) Monocytes # (Auto) 1.3 x10^3/uL (0.0-1.1) Eosinophils # (Auto) 0.0 x10^3/uL (0.0-0.7) Basophils # (Auto) 0.1 x10^3/uL (0.0-0.2) Sodium Level 137 mmol/L (136-145) Potassium Level 4.3 mmol/L (3.5-5.1) Chloride Level 103 mmol/L (98-107) Carbon Dioxide Level 27 mmol/L (21-32) Anion Gap 7 (6-14) Blood Urea Nitrogen 14 mg/dL (8-26) Creatinine 2.1 mg/dL (0.7-1.3) Estimated GFR (Cockcroft-Gault) 39.7 BUN/Creatinine Ratio 7 (6-20) Glucose Level 128 mg/dL (70-99) Calcium Level 7.7 mg/dL (8.5-10.1) Total Bilirubin 0.4 mg/dL (0.2-1.0) Aspartate Amino Transf (AST/SGOT) 26 U/L (15-37) Alanine Aminotransferase (ALT/SGPT) 12 U/L (16-63) Alkaline Phosphatase 76 U/L (46-116) Total Protein 5.5 g/dL (6.4-8.2) Albumin 1.7 g/dL (3.4-5.0) Albumin/Globulin Ratio 0.4 (1.0-1.7) Review All relevant outside records, renal labs, imaging studies, telemetry/EKG's were reviewed. Images Images Right kidney: Size: 11.9 x 5.4 x 4.8cm. Collecting System: No hydronephrosis. No renal calculi detected. Parenchyma: Normal echotexture and morphology. No focal contour deforming renal mass. Left kidney: Limited evaluation secondary to bandages and surgical drain from recent surgery. Size: 13.4 x 6.3 x 6.7cm. Collecting System: No hydronephrosis. No renal calculi detected. Parenchyma: Normal echotexture and morphology. No focal contour deforming renal mass. Urinary bladder: Decompressed by a Shrestha catheter. IMPRESSION: No sonographic evidence for obstructive uropathy. _ ELINOR HERNANDEZ MD 19, 2019 10:07
[2018-11-16] MEDS ORDERED: oxyCODONE/APAP 5/325 1 TAB TABLET PO PRN (10:15)
[2018-11-16 11:18] VITALS: BP 119/71
--- NOTE | 2018-11-16 12:06 | PDOC ---
SURGICAL PROGRESS NOTE Subjective Pt doing well, no N/V, passing flatus Vital Signs Vital Signs Date Time Temp Pulse Resp B/P (MAP) Pulse Ox O2 Delivery O2 Flow Rate FiO2 11/16/18 11:18 99.5 112 16 119/71 (87) 97 Room Air 99.5 11/16/18 10:57 2.0 I&O Intake and Output 11/16/18 07:00 Intake Total 200 ml Output Total 1260 ml Balance -1060 ml Intake Oral 200 ml Output Urine Total 1110 ml Drainage Total 150 ml PATIENT HAS A HILL: Yes General: Alert, Oriented X3, Cooperative, No acute distress Abdomen: Soft, No tenderness, Other (incision c/d/i, JUAN serosang) Labs Laboratory Tests Test 11/14/18 13:59 11/14/18 17:00 11/14/18 21:00 11/15/18 07:00 Urine Collection Type U cath Urine Color Yellow Urine Clarity Clear Urine pH 6.0 Urine Specific [place] 1.025 Urine Protein 100 mg/dL (NEG-TRACE) Urine Glucose (UA) Negative mg/dL (NEG) Urine Ketones (Stick) Trace mg/dL (NEG) Urine Blood Negative (NEG) Urine Nitrite Negative (NEG) Urine Bilirubin Small (NEG) Urine Urobilinogen Dipstick 0.2 mg/dL (0.2 mg/dL) Urine Leukocyte Esterase Negative (NEG) Urine RBC 1-2 /HPF (0-2) Urine WBC 1-4 /HPF (0-4) Urine Squamous Epithelial Cells Few /LPF Urine Bacteria 0 /HPF (0-FEW) Urine Hyaline Casts Few /HPF Urine Mucus Mod /LPF White Blood Count 15.9 x10^3/uL (4.0-11.0) 17.9 x10^3/uL (4.0-11.0) Hemoglobin 7.3 g/dL (13.0-17.5) 10.3 g/dL (13.0-17.5) Hematocrit 22.2 % (39.0-53.0) 30.4 % (39.0-53.0) Platelet Count 468 x10^3/uL (140-400) 540 x10^3/uL (140-400) Nasal Screen MRSA (PCR) Negative (Negative) Red Blood Count 3.90 x10^6/uL (4.30-5.70) Mean Corpuscular Volume 78 fL (79-100) Mean Corpuscular Hemoglobin 26 pg (25-35) Mean Corpuscular Hemoglobin Concent 34 g/dL (31-37) Red Cell Distribution Width 20.5 % (11.5-14.5) Neutrophils (%) (Auto) 82 % (31-73) Lymphocytes (%) (Auto) 11 % (24-48) Monocytes (%) (Auto) 7 % (0-9) Eosinophils (%) (Auto) 0 % (0-3) Basophils (%) (Auto) 1 % (0-3) Neutrophils # (Auto) 14.6 x10^3/uL (1.8-7.7) Lymphocytes # (Auto) 1.9 x10^3/uL (1.0-4.8) Monocytes # (Auto) 1.2 x10^3/uL (0.0-1.1) Eosinophils # (Auto) 0.0 x10^3/uL (0.0-0.7) Basophils # (Auto) 0.1 x10^3/uL (0.0-0.2) Segmented Neutrophils % 81 % (35-66) Band Neutrophils % 1 % (0-9) Lymphocytes % 12 % (24-48) Monocytes % 6 % (0-10) Nucleated Red Blood Cells 1 Platelet Estimate Increased (ADEQUATE) Anisocytosis Slight Sodium Level 136 mmol/L (136-145) Potassium Level 4.9 mmol/L (3.5-5.1) Chloride Level 102 mmol/L (98-107) Carbon Dioxide Level 22 mmol/L (21-32) Anion Gap 12 (6-14) Blood Urea Nitrogen 14 mg/dL (8-26) Creatinine 2.0 mg/dL (0.7-1.3) Estimated GFR (Cockcroft-Gault) 42.0 Glucose Level 145 mg/dL (70-99) Calcium Level 7.8 mg/dL (8.5-10.1) Test 11/16/18 03:50 White Blood Count 18.0 x10^3/uL (4.0-11.0) Red Blood Count 2.94 x10^6/uL (4.30-5.70) Hemoglobin 7.8 g/dL (13.0-17.5) Hematocrit 23.1 % (39.0-53.0) Mean Corpuscular Volume 79 fL (79-100) Mean Corpuscular Hemoglobin 27 pg (25-35) Mean Corpuscular Hemoglobin Concent 34 g/dL (31-37) Red Cell Distribution Width 20.8 % (11.5-14.5) Platelet Count 513 x10^3/uL (140-400) Neutrophils (%) (Auto) 80 % (31-73) Lymphocytes (%) (Auto) 12 % (24-48) Monocytes (%) (Auto) 7 % (0-9) Eosinophils (%) (Auto) 0 % (0-3) Basophils (%) (Auto) 0 % (0-3) Neutrophils # (Auto) 14.4 x10^3/uL (1.8-7.7) Lymphocytes # (Auto) 2.2 x10^3/uL (1.0-4.8) Monocytes # (Auto) 1.3 x10^3/uL (0.0-1.1) Eosinophils # (Auto) 0.0 x10^3/uL (0.0-0.7) Basophils # (Auto) 0.1 x10^3/uL (0.0-0.2) Sodium Level 137 mmol/L (136-145) Potassium Level 4.3 mmol/L (3.5-5.1) Chloride Level 103 mmol/L (98-107) Carbon Dioxide Level 27 mmol/L (21-32) Anion Gap 7 (6-14) Blood Urea Nitrogen 14 mg/dL (8-26) Creatinine 2.1 mg/dL (0.7-1.3) Estimated GFR (Cockcroft-Gault) 39.7 BUN/Creatinine Ratio 7 (6-20) Glucose Level 128 mg/dL (70-99) Calcium Level 7.7 mg/dL (8.5-10.1) Total Bilirubin 0.4 mg/dL (0.2-1.0) Aspartate Amino Transf (AST/SGOT) 26 U/L (15-37) Alanine Aminotransferase (ALT/SGPT) 12 U/L (16-63) Alkaline Phosphatase 76 U/L (46-116) Total Protein 5.5 g/dL (6.4-8.2) Albumin 1.7 g/dL (3.4-5.0) Albumin/Globulin Ratio 0.4 (1.0-1.7) Laboratory Tests Test 11/16/18 03:50 White Blood Count 18.0 x10^3/uL (4.0-11.0) Red Blood Count 2.94 x10^6/uL (4.30-5.70) Hemoglobin 7.8 g/dL (13.0-17.5) Hematocrit 23.1 % (39.0-53.0) Mean Corpuscular Volume 79 fL (79-100) Mean Corpuscular Hemoglobin 27 pg (25-35) Mean Corpuscular Hemoglobin Concent 34 g/dL (31-37) Red Cell Distribution Width 20.8 % (11.5-14.5) Platelet Count 513 x10^3/uL (140-400) Neutrophils (%) (Auto) 80 % (31-73) Lymphocytes (%) (Auto) 12 % (24-48) Monocytes (%) (Auto) 7 % (0-9) Eosinophils (%) (Auto) 0 % (0-3) Basophils (%) (Auto) 0 % (0-3) Neutrophils # (Auto) 14.4 x10^3/uL (1.8-7.7) Lymphocytes # (Auto) 2.2 x10^3/uL (1.0-4.8) Monocytes # (Auto) 1.3 x10^3/uL (0.0-1.1) Eosinophils # (Auto) 0.0 x10^3/uL (0.0-0.7) Basophils # (Auto) 0.1 x10^3/uL (0.0-0.2) Sodium Level 137 mmol/L (136-145) Potassium Level 4.3 mmol/L (3.5-5.1) Chloride Level 103 mmol/L (98-107) Carbon Dioxide Level 27 mmol/L (21-32) Anion Gap 7 (6-14) Blood Urea Nitrogen 14 mg/dL (8-26) Creatinine 2.1 mg/dL (0.7-1.3) Estimated GFR (Cockcroft-Gault) 39.7 BUN/Creatinine Ratio 7 (6-20) Glucose Level 128 mg/dL (70-99) Calcium Level 7.7 mg/dL (8.5-10.1) Total Bilirubin 0.4 mg/dL (0.2-1.0) Aspartate Amino Transf (AST/SGOT) 26 U/L (15-37) Alanine Aminotransferase (ALT/SGPT) 12 U/L (16-63) Alkaline Phosphatase 76 U/L (46-116) Total Protein 5.5 g/dL (6.4-8.2) Albumin 1.7 g/dL (3.4-5.0) Albumin/Globulin Ratio 0.4 (1.0-1.7) Problem List s/p xlap try clears given elevated cr and protein on preop UA, will ask nephrology to comment PO pain control await pathology SOLIS PARKER MD Nov 16, 2018 12:06
[2018-11-16] MEDS: MORPHINE SULFATE 2 MG/ML VIAL. IV PRN ×2 (12:24→20:10)
[2018-11-16] MEDS: oxyCODONE/APAP 5/325 1 TAB TABLET PO PRN ×3 (14:39→23:00)
[2018-11-16 15:07] VITALS: BP 142/84
--- NOTE | 2018-11-16 15:48 | RAD ---
RENAL COMPLETE BILATERAL: 11/16/2018 10:56 AM Indication: 58 years old Male. Tube kidney injury. Comparison: None. FINDINGS: Sonographic evaluation of kidneys is performed utilizing grayscale and color Doppler. Right kidney: Size: 11.9 x 5.4 x 4.8cm. Collecting System: No hydronephrosis. No renal calculi detected. Parenchyma: Normal echotexture and morphology. No focal contour deforming renal mass. Left kidney: Limited evaluation secondary to bandages and surgical drain from recent surgery. Size: 13.4 x 6.3 x 6.7cm. Collecting System: No hydronephrosis. No renal calculi detected. Parenchyma: Normal echotexture and morphology. No focal contour deforming renal mass. Urinary bladder: Decompressed by a Shrestha catheter. IMPRESSION: No sonographic evidence for obstructive uropathy. Electronically signed by: Caro Santizo MD (11/16/2018 3:45 PM) [id number]
[2018-11-16 19:00] VITALS: BP 142/87
[2018-11-16 23:00] VITALS: BP 145/94
[2018-11-17] MEDS: IV RINGERS,LACTATED 1000ML 1,000 ML IV SCH ×3 (00:32→18:07)
[2018-11-17] MEDS: MORPHINE SULFATE 2 MG/ML VIAL. IV PRN (00:49)
[2018-11-17 03:00] VITALS: BP 144/88
[2018-11-17] MEDS: oxyCODONE/APAP 5/325 1 TAB TABLET PO PRN ×4 (03:56→18:06)
[2018-11-17 05:05] LABS: BASO # 0.2 x10^3/uL (0.0-0.2); BASO % 1 % (0-3); EOS # 0.1 x10^3/uL (0.0-0.7); EOS % 1 % (0-3); HEMATOCRIT 23.8 % (39.0-53.0); HEMOGLOBIN 7.8 g/dL (13.0-17.5); LYMPH # 1.9 x10^3/uL (1.0-4.8); LYMPH % 10 % (24-48); MEAN CORPUSCULAR HEMOGLOBIN 26 pg (25-35); MEAN CORPUSCULAR HGB CONC 33 g/dL (31-37); MEAN CORPUSCULAR VOLUME 79 fL (79-100); MONO # 1.4 x10^3/uL (0.0-1.1); MONO % 8 % (0-9); NEUT # 14.7 x10^3/uL (1.8-7.7); NEUT % 80 % (31-73); PLATELET COUNT 555 x10^3/uL (140-400); RED CELL DISTRIBUTION WIDTH 20.9 % (11.5-14.5); WHITE BLOOD COUNT 18.3 x10^3/uL (4.0-11.0)
[2018-11-17 05:25] LABS: CALCIUM 8.4 mg/dL (8.5-10.1); CREATININE 1.7 mg/dL (0.7-1.3); GFR 50.7; POTASSIUM 4.5 mmol/L (3.5-5.1)
[2018-11-17 07:45] VITALS: BP 154/93
[2018-11-17] MEDS: FAMOTIDINE 20 MG/2 ML VIAL IVP SCH (08:27)
[2018-11-17] MEDS: HEPARIN for SUB-Q USE 5,000 UNIT/ML VIAL. SQ SCH ×2 (08:38→20:32)
--- NOTE | 2018-11-17 10:24 | PDOC ---
SURGICAL PROGRESS NOTE Subjective Patient doing fairly well began passing flatus started on full liquid diet this morning Vital Signs Vital Signs Date Time Temp Pulse Resp B/P (MAP) Pulse Ox O2 Delivery O2 Flow Rate FiO2 11/17/18 09:52 95 Room Air 11/17/18 08:25 2.0 11/17/18 07:45 98.8 109 20 154/93 (113) 98.8 I&O Intake and Output 11/17/18 06:59 Intake Total 50 ml Output Total 2615 ml Balance -2565 ml IV Total 50 ml Output Urine Total 2575 ml Drainage Total 40 ml PATIENT HAS A HILL: No General: Alert, Oriented X3, Cooperative, mild distress Abdomen: Normal bowel sounds, Soft, Other (mild incisional tenderness wounds clean dry and intact) Labs Laboratory Tests Test 11/16/18 03:50 11/17/18 03:50 White Blood Count 18.0 x10^3/uL (4.0-11.0) 18.3 x10^3/uL (4.0-11.0) Red Blood Count 2.94 x10^6/uL (4.30-5.70) 3.00 x10^6/uL (4.30-5.70) Hemoglobin 7.8 g/dL (13.0-17.5) 7.8 g/dL (13.0-17.5) Hematocrit 23.1 % (39.0-53.0) 23.8 % (39.0-53.0) Mean Corpuscular Volume 79 fL (79-100) 79 fL (79-100) Mean Corpuscular Hemoglobin 27 pg (25-35) 26 pg (25-35) Mean Corpuscular Hemoglobin Concent 34 g/dL (31-37) 33 g/dL (31-37) Red Cell Distribution Width 20.8 % (11.5-14.5) 20.9 % (11.5-14.5) Platelet Count 513 x10^3/uL (140-400) 555 x10^3/uL (140-400) Neutrophils (%) (Auto) 80 % (31-73) 80 % (31-73) Lymphocytes (%) (Auto) 12 % (24-48) 10 % (24-48) Monocytes (%) (Auto) 7 % (0-9) 8 % (0-9) Eosinophils (%) (Auto) 0 % (0-3) 1 % (0-3) Basophils (%) (Auto) 0 % (0-3) 1 % (0-3) Neutrophils # (Auto) 14.4 x10^3/uL (1.8-7.7) 14.7 x10^3/uL (1.8-7.7) Lymphocytes # (Auto) 2.2 x10^3/uL (1.0-4.8) 1.9 x10^3/uL (1.0-4.8) Monocytes # (Auto) 1.3 x10^3/uL (0.0-1.1) 1.4 x10^3/uL (0.0-1.1) Eosinophils # (Auto) 0.0 x10^3/uL (0.0-0.7) 0.1 x10^3/uL (0.0-0.7) Basophils # (Auto) 0.1 x10^3/uL (0.0-0.2) 0.2 x10^3/uL (0.0-0.2) Sodium Level 137 mmol/L (136-145) 134 mmol/L (136-145) Potassium Level 4.3 mmol/L (3.5-5.1) 4.5 mmol/L (3.5-5.1) Chloride Level 103 mmol/L (98-107) 101 mmol/L (98-107) Carbon Dioxide Level 27 mmol/L (21-32) 27 mmol/L (21-32) Anion Gap 7 (6-14) 6 (6-14) Blood Urea Nitrogen 14 mg/dL (8-26) 9 mg/dL (8-26) Creatinine 2.1 mg/dL (0.7-1.3) 1.7 mg/dL (0.7-1.3) Estimated GFR (Cockcroft-Gault) 39.7 50.7 BUN/Creatinine Ratio 7 (6-20) Glucose Level 128 mg/dL (70-99) 115 mg/dL (70-99) Calcium Level 7.7 mg/dL (8.5-10.1) 8.4 mg/dL (8.5-10.1) Total Bilirubin 0.4 mg/dL (0.2-1.0) Aspartate Amino Transf (AST/SGOT) 26 U/L (15-37) Alanine Aminotransferase (ALT/SGPT) 12 U/L (16-63) Alkaline Phosphatase 76 U/L (46-116) Total Protein 5.5 g/dL (6.4-8.2) Albumin 1.7 g/dL (3.4-5.0) Albumin/Globulin Ratio 0.4 (1.0-1.7) Laboratory Tests Test 11/17/18 03:50 White Blood Count 18.3 x10^3/uL (4.0-11.0) Red Blood Count 3.00 x10^6/uL (4.30-5.70) Hemoglobin 7.8 g/dL (13.0-17.5) Hematocrit 23.8 % (39.0-53.0) Mean Corpuscular Volume 79 fL (79-100) Mean Corpuscular Hemoglobin 26 pg (25-35) Mean Corpuscular Hemoglobin Concent 33 g/dL (31-37) Red Cell Distribution Width 20.9 % (11.5-14.5) Platelet Count 555 x10^3/uL (140-400) Neutrophils (%) (Auto) 80 % (31-73) Lymphocytes (%) (Auto) 10 % (24-48) Monocytes (%) (Auto) 8 % (0-9) Eosinophils (%) (Auto) 1 % (0-3) Basophils (%) (Auto) 1 % (0-3) Neutrophils # (Auto) 14.7 x10^3/uL (1.8-7.7) Lymphocytes # (Auto) 1.9 x10^3/uL (1.0-4.8) Monocytes # (Auto) 1.4 x10^3/uL (0.0-1.1) Eosinophils # (Auto) 0.1 x10^3/uL (0.0-0.7) Basophils # (Auto) 0.2 x10^3/uL (0.0-0.2) Sodium Level 134 mmol/L (136-145) Potassium Level 4.5 mmol/L (3.5-5.1) Chloride Level 101 mmol/L (98-107) Carbon Dioxide Level 27 mmol/L (21-32) Anion Gap 6 (6-14) Blood Urea Nitrogen 9 mg/dL (8-26) Creatinine 1.7 mg/dL (0.7-1.3) Estimated GFR (Cockcroft-Gault) 50.7 Glucose Level 115 mg/dL (70-99) Calcium Level 8.4 mg/dL (8.5-10.1) Assessment/Plan 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
--- NOTE | 2018-11-17 10:27 | PDOC ---
PROGRESS NOTES Subjective Subjective recovering well Objective Objective Vital Signs Date Time Temp Pulse Resp B/P (MAP) Pulse Ox O2 Delivery O2 Flow Rate FiO2 11/17/18 09:52 95 Room Air 11/17/18 08:25 2.0 11/17/18 07:45 98.8 109 20 154/93 (113) 98.8 Intake and Output 11/17/18 06:59 Intake Total 50 ml Output Total 2615 ml Balance -2565 ml IV Total 50 ml Output Urine Total 2575 ml Drainage Total 40 ml Physical Exam Abdomen: Normal bowel sounds, Soft, Other (mild incisional tenderness wounds clean dry and intact) General: Alert, Oriented X3, Cooperative, mild distress HEENT: Other (NG present) MUSCULOSKELETAL: No deformity, No swelling COMMENT gipson d/cyrus Assessment Assessment FINAL IMPRESSION:POD#3 1. 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 2. Hypertension. 3. History of Helicobacter pylori gastritis. 4. Ac kidney insufficiency PLAN: POD#3. 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 Comment Review of Relevant I have reviewed the following items yariel (where applicable) has been applied. Labs Laboratory Tests Test 11/17/18 03:50 White Blood Count 18.3 x10^3/uL (4.0-11.0) Red Blood Count 3.00 x10^6/uL (4.30-5.70) Hemoglobin 7.8 g/dL (13.0-17.5) Hematocrit 23.8 % (39.0-53.0) Mean Corpuscular Volume 79 fL (79-100) Mean Corpuscular Hemoglobin 26 pg (25-35) Mean Corpuscular Hemoglobin Concent 33 g/dL (31-37) Red Cell Distribution Width 20.9 % (11.5-14.5) Platelet Count 555 x10^3/uL (140-400) Neutrophils (%) (Auto) 80 % (31-73) Lymphocytes (%) (Auto) 10 % (24-48) Monocytes (%) (Auto) 8 % (0-9) Eosinophils (%) (Auto) 1 % (0-3) Basophils (%) (Auto) 1 % (0-3) Neutrophils # (Auto) 14.7 x10^3/uL (1.8-7.7) Lymphocytes # (Auto) 1.9 x10^3/uL (1.0-4.8) Monocytes # (Auto) 1.4 x10^3/uL (0.0-1.1) Eosinophils # (Auto) 0.1 x10^3/uL (0.0-0.7) Basophils # (Auto) 0.2 x10^3/uL (0.0-0.2) Sodium Level 134 mmol/L (136-145) Potassium Level 4.5 mmol/L (3.5-5.1) Chloride Level 101 mmol/L (98-107) Carbon Dioxide Level 27 mmol/L (21-32) Anion Gap 6 (6-14) Blood Urea Nitrogen 9 mg/dL (8-26) Creatinine 1.7 mg/dL (0.7-1.3) Estimated GFR (Cockcroft-Gault) 50.7 Glucose Level 115 mg/dL (70-99) Calcium Level 8.4 mg/dL (8.5-10.1) Microbiology 11/14/18 Urine Culture - Final, Complete 11/14/18 Urine Culture Result 1 (EVA) - Final, Complete Medications Current Medications Oxycodone/ Acetaminophen (Percocet 5/325) 2 tab PRN Q4HRS PRN PO SEVERE PAIN Last administered on 11/17/18at 08:25; Start 11/16/18 at 10:30 Vitals/I & O Vital Sign - Last 24 Hours 11/16/18 11/16/18 11/16/18 11/16/18 10:57 11:18 11:57 12:24 Temp 99.5 99.5 Pulse 112 Resp 18 B/P (MAP) 119/71 (87) Pulse Ox 95 97 97 O2 Delivery Room Air Room Air Room Air Room Air O2 Flow Rate 2.0 11/16/18 11/16/18 11/16/18 11/16/18 12:54 14:39 15:07 15:39 Temp 99.4 99.4 Pulse 107 Resp 20 20 16 18 B/P (MAP) 142/84 (103) Pulse Ox 97 96 O2 Delivery Room Air Room Air 11/16/18 11/16/18 11/16/18 11/16/18 18:58 19:00 20:00 20:10 Temp 99.9 99.9 Pulse 107 Resp 20 18 B/P (MAP) 142/87 (105) Pulse Ox 98 O2 Delivery Room Air Room Air Room Air Room Air O2 Flow Rate 2.0 11/16/18 11/16/18 11/17/18 11/17/18 23:00 23:00 00:49 01:19 Temp 99.2 99.2 Pulse 96 Resp 18 B/P (MAP) 145/94 (111) Pulse Ox 95 O2 Delivery Room Air Room Air Room Air Room Air O2 Flow Rate 2.0 11/17/18 11/17/18 11/17/18 11/17/18 03:00 03:56 07:45 08:00 Temp 99.4 98.8 99.4 98.8 Pulse 93 109 Resp 18 20 B/P (MAP) 144/88 (106) 154/93 (113) Pulse Ox 93 95 O2 Delivery Room Air Room Air Room Air Room Air O2 Flow Rate 2.0 2.0 11/17/18 11/17/18 08:25 09:52 Pulse Ox 95 95 O2 Delivery Room Air Room Air O2 Flow Rate 2.0 Intake and Output 11/16/18 11/16/18 11/17/18 14:59 22:59 06:59 Intake Total 50 ml Output Total 425 ml 40 ml 2150 ml Balance -375 ml -40 ml -2150 ml LUCA MART MD Nov 17, 2018 10:27
[2018-11-17 11:18] VITALS: BP 131/82
--- NOTE | 2018-11-17 12:00 | PDOC ---
Renal-Progress Notes Subjective Notes Notes NO NEW COMPLAINTS History of Present Illness Hx of present illness STABLE Vitals Vitals Vital Signs Date Time Temp Pulse Resp B/P (MAP) Pulse Ox O2 Delivery O2 Flow Rate FiO2 11/17/18 11:18 99.1 89 20 131/82 (98) 96 Room Air 2.0 99.1 Weight Weight [ ] I.O. Intake and Output Intake and Output 11/17/18 07:00 Intake Total 50 ml Output Total 2615 ml Balance -2565 ml IV Total 50 ml Output Urine Total 2575 ml Drainage Total 40 ml Labs Labs Laboratory Tests Test 11/17/18 03:50 White Blood Count 18.3 x10^3/uL (4.0-11.0) Red Blood Count 3.00 x10^6/uL (4.30-5.70) Hemoglobin 7.8 g/dL (13.0-17.5) Hematocrit 23.8 % (39.0-53.0) Mean Corpuscular Volume 79 fL (79-100) Mean Corpuscular Hemoglobin 26 pg (25-35) Mean Corpuscular Hemoglobin Concent 33 g/dL (31-37) Red Cell Distribution Width 20.9 % (11.5-14.5) Platelet Count 555 x10^3/uL (140-400) Neutrophils (%) (Auto) 80 % (31-73) Lymphocytes (%) (Auto) 10 % (24-48) Monocytes (%) (Auto) 8 % (0-9) Eosinophils (%) (Auto) 1 % (0-3) Basophils (%) (Auto) 1 % (0-3) Neutrophils # (Auto) 14.7 x10^3/uL (1.8-7.7) Lymphocytes # (Auto) 1.9 x10^3/uL (1.0-4.8) Monocytes # (Auto) 1.4 x10^3/uL (0.0-1.1) Eosinophils # (Auto) 0.1 x10^3/uL (0.0-0.7) Basophils # (Auto) 0.2 x10^3/uL (0.0-0.2) Sodium Level 134 mmol/L (136-145) Potassium Level 4.5 mmol/L (3.5-5.1) Chloride Level 101 mmol/L (98-107) Carbon Dioxide Level 27 mmol/L (21-32) Anion Gap 6 (6-14) Blood Urea Nitrogen 9 mg/dL (8-26) Creatinine 1.7 mg/dL (0.7-1.3) Estimated GFR (Cockcroft-Gault) 50.7 Glucose Level 115 mg/dL (70-99) Calcium Level 8.4 mg/dL (8.5-10.1) Micro Micro Microbiology 11/14/18 Urine Culture - Final, Complete 11/14/18 Urine Culture Result 1 (EVA) - Final, Complete Review of Systems Constitutional: yes: alert, oriented Ears/Nose/Throat: Yes: no symptom reported Eyes: Yes: no symptom reported Pulmonary: Yes no symptom reported Cardiovascular: Yes no symptom reported Gastrointestional: Yes: no symptom reported Genitourinary: Yes: no symptom reported Musculoskeletal: Yes: no symptom reported Skin: Yes no symptom reported Psychiatric/Neurological: Yes: no symptom reported Endocrine: Yes: no symptom reported Physical Exam General Appearance: no apparent distress Skin: warm Respiratory: decreased breath sounds Heart: S1S2, RRR Abdomen: soft, bowel sounds present Genitourinary: bladder flat Extremities: pulses present Neurology: alert, oriented Assessment Assessment IMP S/P EXP LAP DEHYDRATION RADHA-IMPROVED WITH CR OF 1.7 PLAN CONT IVF'S ENC PO WILL FOLLOW JANET MARIN MD Nov 17, 2018 12:00
[2018-11-17 15:11] VITALS: BP 140/83
[2018-11-17 19:48] VITALS: BP 143/85
[2018-11-17] MEDS: KETOROLAC 30 MG/ML VIAL. IV PRN (20:25)
[2018-11-17] MEDS ORDERED: FAMOTIDINE 20 MG TABLET. PO SCH (21:00)
[2018-11-17 23:49] VITALS: BP 129/81
[2018-11-18] MEDS: oxyCODONE/APAP 5/325 1 TAB TABLET PO PRN ×5 (00:01→20:15)
[2018-11-18 04:30] LABS: BASO # 0.1 x10^3/uL (0.0-0.2); BASO % 0 % (0-3); EOS # 0.2 x10^3/uL (0.0-0.7); EOS % 1 % (0-3); HEMATOCRIT 21.6 % (39.0-53.0); HEMOGLOBIN 7.2 g/dL (13.0-17.5); LYMPH # 1.8 x10^3/uL (1.0-4.8); LYMPH % 12 % (24-48); MEAN CORPUSCULAR HEMOGLOBIN 26 pg (25-35); MEAN CORPUSCULAR HGB CONC 33 g/dL (31-37); MEAN CORPUSCULAR VOLUME 78 fL (79-100); MONO # 1.2 x10^3/uL (0.0-1.1); MONO % 8 % (0-9); NEUT # 11.7 x10^3/uL (1.8-7.7); NEUT % 79 % (31-73); PLATELET COUNT 602 x10^3/uL (140-400); RED BLOOD COUNT 2.77 x10^6/uL (4.30-5.70); RED CELL DISTRIBUTION WIDTH 20.6 % (11.5-14.5); WHITE BLOOD COUNT 14.9 x10^3/uL (4.0-11.0)
[2018-11-18 04:48] LABS: CALCIUM 8.5 mg/dL (8.5-10.1); CREATININE 1.6 mg/dL (0.7-1.3); GFR 54.4
[2018-11-18] MEDS: IV RINGERS,LACTATED 1000ML 1,000 ML IV SCH (06:17)
[2018-11-18 07:48] VITALS: BP 135/87
--- NOTE | 2018-11-18 09:00 | PDOC ---
SURGICAL PROGRESS NOTE Subjective Patient is doing quite well only complains reflex no pain has been passing flatus and tolerating full liquid diet Vital Signs Vital Signs Date Time Temp Pulse Resp B/P (MAP) Pulse Ox O2 Delivery O2 Flow Rate FiO2 11/18/18 07:48 98.6 88 18 135/87 (103) 97 Room Air 98.6 11/18/18 07:16 2.0 I&O Intake and Output 11/18/18 07:00 Intake Total 950 ml Output Total 2140 ml Balance -1190 ml Intake Oral 950 ml Output Urine Total 2050 ml Drainage Total 90 ml PATIENT HAS A HILL: No General: Alert, Oriented X3, Cooperative, mild distress Abdomen: Normal bowel sounds, Soft, No tenderness, Other (wounds clean dry and intact JUAN drain in place with serous drainage) Labs Laboratory Tests Test 11/17/18 03:50 11/18/18 03:50 White Blood Count 18.3 x10^3/uL (4.0-11.0) 14.9 x10^3/uL (4.0-11.0) Red Blood Count 3.00 x10^6/uL (4.30-5.70) 2.77 x10^6/uL (4.30-5.70) Hemoglobin 7.8 g/dL (13.0-17.5) 7.2 g/dL (13.0-17.5) Hematocrit 23.8 % (39.0-53.0) 21.6 % (39.0-53.0) Mean Corpuscular Volume 79 fL (79-100) 78 fL (79-100) Mean Corpuscular Hemoglobin 26 pg (25-35) 26 pg (25-35) Mean Corpuscular Hemoglobin Concent 33 g/dL (31-37) 33 g/dL (31-37) Red Cell Distribution Width 20.9 % (11.5-14.5) 20.6 % (11.5-14.5) Platelet Count 555 x10^3/uL (140-400) 602 x10^3/uL (140-400) Neutrophils (%) (Auto) 80 % (31-73) 79 % (31-73) Lymphocytes (%) (Auto) 10 % (24-48) 12 % (24-48) Monocytes (%) (Auto) 8 % (0-9) 8 % (0-9) Eosinophils (%) (Auto) 1 % (0-3) 1 % (0-3) Basophils (%) (Auto) 1 % (0-3) 0 % (0-3) Neutrophils # (Auto) 14.7 x10^3/uL (1.8-7.7) 11.7 x10^3/uL (1.8-7.7) Lymphocytes # (Auto) 1.9 x10^3/uL (1.0-4.8) 1.8 x10^3/uL (1.0-4.8) Monocytes # (Auto) 1.4 x10^3/uL (0.0-1.1) 1.2 x10^3/uL (0.0-1.1) Eosinophils # (Auto) 0.1 x10^3/uL (0.0-0.7) 0.2 x10^3/uL (0.0-0.7) Basophils # (Auto) 0.2 x10^3/uL (0.0-0.2) 0.1 x10^3/uL (0.0-0.2) Sodium Level 134 mmol/L (136-145) 136 mmol/L (136-145) Potassium Level 4.5 mmol/L (3.5-5.1) 4.0 mmol/L (3.5-5.1) Chloride Level 101 mmol/L (98-107) 100 mmol/L (98-107) Carbon Dioxide Level 27 mmol/L (21-32) 29 mmol/L (21-32) Anion Gap 6 (6-14) 7 (6-14) Blood Urea Nitrogen 9 mg/dL (8-26) 6 mg/dL (8-26) Creatinine 1.7 mg/dL (0.7-1.3) 1.6 mg/dL (0.7-1.3) Estimated GFR (Cockcroft-Gault) 50.7 54.4 Glucose Level 115 mg/dL (70-99) 106 mg/dL (70-99) Calcium Level 8.4 mg/dL (8.5-10.1) 8.5 mg/dL (8.5-10.1) Laboratory Tests Test 11/18/18 03:50 White Blood Count 14.9 x10^3/uL (4.0-11.0) Red Blood Count 2.77 x10^6/uL (4.30-5.70) Hemoglobin 7.2 g/dL (13.0-17.5) Hematocrit 21.6 % (39.0-53.0) Mean Corpuscular Volume 78 fL (79-100) Mean Corpuscular Hemoglobin 26 pg (25-35) Mean Corpuscular Hemoglobin Concent 33 g/dL (31-37) Red Cell Distribution Width 20.6 % (11.5-14.5) Platelet Count 602 x10^3/uL (140-400) Neutrophils (%) (Auto) 79 % (31-73) Lymphocytes (%) (Auto) 12 % (24-48) Monocytes (%) (Auto) 8 % (0-9) Eosinophils (%) (Auto) 1 % (0-3) Basophils (%) (Auto) 0 % (0-3) Neutrophils # (Auto) 11.7 x10^3/uL (1.8-7.7) Lymphocytes # (Auto) 1.8 x10^3/uL (1.0-4.8) Monocytes # (Auto) 1.2 x10^3/uL (0.0-1.1) Eosinophils # (Auto) 0.2 x10^3/uL (0.0-0.7) Basophils # (Auto) 0.1 x10^3/uL (0.0-0.2) Sodium Level 136 mmol/L (136-145) Potassium Level 4.0 mmol/L (3.5-5.1) Chloride Level 100 mmol/L (98-107) Carbon Dioxide Level 29 mmol/L (21-32) Anion Gap 7 (6-14) Blood Urea Nitrogen 6 mg/dL (8-26) Creatinine 1.6 mg/dL (0.7-1.3) Estimated GFR (Cockcroft-Gault) 54.4 Glucose Level 106 mg/dL (70-99) Calcium Level 8.5 mg/dL (8.5-10.1) Assessment/Plan Status post removal of large left upper quadrant mass and splenectomy is doing quite well advanced diet continue supportive care Restart home meds including his PPI SARAHI HAGEN MD Nov 18, 2018 09:00
--- NOTE | 2018-11-18 09:41 | PDOC ---
PROGRESS NOTES Subjective Subjective c/o heartburn Objective Objective Vital Signs Date Time Temp Pulse Resp B/P (MAP) Pulse Ox O2 Delivery O2 Flow Rate FiO2 11/18/18 07:48 98.6 88 18 135/87 (103) 97 Room Air 98.6 11/18/18 07:16 2.0 Intake and Output 11/18/18 06:59 Intake Total 950 ml Output Total 2140 ml Balance -1190 ml Intake Oral 950 ml Output Urine Total 2050 ml Drainage Total 90 ml Physical Exam Abdomen: Normal bowel sounds, Soft, No tenderness, Other (wounds clean dry and intact JUAN drain in place with serous drainage) General: Alert, Oriented X3, Cooperative, mild distress HEENT: Other (NG present) MUSCULOSKELETAL: No deformity, No swelling COMMENT drain present Assessment Assessment FINAL IMPRESSION:POD#4 1. 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 2. Hypertension. 3. History of Helicobacter pylori gastritis. 4. Ac kidney insufficiency 5. GERD PLAN: protonix and mylanta POD#4. 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 Labs Laboratory Tests Test 11/18/18 03:50 White Blood Count 14.9 x10^3/uL (4.0-11.0) Red Blood Count 2.77 x10^6/uL (4.30-5.70) Hemoglobin 7.2 g/dL (13.0-17.5) Hematocrit 21.6 % (39.0-53.0) Mean Corpuscular Volume 78 fL (79-100) Mean Corpuscular Hemoglobin 26 pg (25-35) Mean Corpuscular Hemoglobin Concent 33 g/dL (31-37) Red Cell Distribution Width 20.6 % (11.5-14.5) Platelet Count 602 x10^3/uL (140-400) Neutrophils (%) (Auto) 79 % (31-73) Lymphocytes (%) (Auto) 12 % (24-48) Monocytes (%) (Auto) 8 % (0-9) Eosinophils (%) (Auto) 1 % (0-3) Basophils (%) (Auto) 0 % (0-3) Neutrophils # (Auto) 11.7 x10^3/uL (1.8-7.7) Lymphocytes # (Auto) 1.8 x10^3/uL (1.0-4.8) Monocytes # (Auto) 1.2 x10^3/uL (0.0-1.1) Eosinophils # (Auto) 0.2 x10^3/uL (0.0-0.7) Basophils # (Auto) 0.1 x10^3/uL (0.0-0.2) Sodium Level 136 mmol/L (136-145) Potassium Level 4.0 mmol/L (3.5-5.1) Chloride Level 100 mmol/L (98-107) Carbon Dioxide Level 29 mmol/L (21-32) Anion Gap 7 (6-14) Blood Urea Nitrogen 6 mg/dL (8-26) Creatinine 1.6 mg/dL (0.7-1.3) Estimated GFR (Cockcroft-Gault) 54.4 Glucose Level 106 mg/dL (70-99) Calcium Level 8.5 mg/dL (8.5-10.1) Microbiology 11/14/18 Urine Culture - Final, Complete 11/14/18 Urine Culture Result 1 (EVA) - Final, Complete Medications Current Medications Famotidine (Pepcid) 20 mg BID PO Last administered on 11/17/18at 20:24; Start 11/17/18 at 21:00; Stop 11/18/18 at 08:43; Status DC Pantoprazole Sodium (Protonix) 40 mg DAILYAC PO ; Start 11/18/18 at 09:00 Pantoprazole Sodium (Protonix) 40 mg DAILYAC PO ; Start 11/19/18 at 07:30; Status UNV Vitals/I & O Vital Sign - Last 24 Hours 11/17/18 11/17/18 11/17/18 11/17/18 11:18 12:47 15:11 18:06 Temp 99.1 99.1 99.1 99.1 Pulse 89 96 Resp 20 20 B/P (MAP) 131/82 (98) 140/83 (102) Pulse Ox 96 96 95 95 O2 Delivery Room Air Room Air Room Air Room Air O2 Flow Rate 2.0 2.0 2.0 2.0 11/17/18 11/17/18 11/17/18 11/18/18 19:48 20:15 23:49 07:16 Temp 99.5 99.1 99.5 99.1 Pulse 101 87 Resp 20 18 B/P (MAP) 143/85 (104) 129/81 (97) Pulse Ox 96 97 97 O2 Delivery Room Air Room Air Room Air Room Air O2 Flow Rate 2.0 2.0 2.0 11/18/18 07:48 Temp 98.6 98.6 Pulse 88 Resp 18 B/P (MAP) 135/87 (103) Pulse Ox 97 O2 Delivery Room Air Intake and Output 11/17/18 11/17/18 11/18/18 14:59 22:59 06:59 Intake Total 300 ml 300 ml 350 ml Output Total 365 ml 900 ml 875 ml Balance -65 ml -600 ml -525 ml LUCA MART MD Nov 18, 2018 09:41
[2018-11-18] MEDS ORDERED: MAG HYDROX/ALUMINUM HYD/SIMETH 30 ML ORAL.SUSP PO ONE (09:45)
[2018-11-18] MEDS: PANTOPRAZOLE 40 MG TABLET.DR. PO SCH (11:07)
--- NOTE | 2018-11-18 11:08 | PDOC ---
Renal-Progress Notes Subjective Notes Notes NO NEW COMPLAINTS History of Present Illness Hx of present illness STABLE Vitals Vitals Vital Signs Date Time Temp Pulse Resp B/P (MAP) Pulse Ox O2 Delivery O2 Flow Rate FiO2 11/18/18 07:48 98.6 88 18 135/87 (103) 97 Room Air 98.6 11/18/18 07:16 2.0 Weight Weight [ ] I.O. Intake and Output Intake and Output 11/18/18 06:59 Intake Total 950 ml Output Total 2140 ml Balance -1190 ml Intake Oral 950 ml Output Urine Total 2050 ml Drainage Total 90 ml Labs Labs Laboratory Tests Test 11/18/18 03:50 White Blood Count 14.9 x10^3/uL (4.0-11.0) Red Blood Count 2.77 x10^6/uL (4.30-5.70) Hemoglobin 7.2 g/dL (13.0-17.5) Hematocrit 21.6 % (39.0-53.0) Mean Corpuscular Volume 78 fL (79-100) Mean Corpuscular Hemoglobin 26 pg (25-35) Mean Corpuscular Hemoglobin Concent 33 g/dL (31-37) Red Cell Distribution Width 20.6 % (11.5-14.5) Platelet Count 602 x10^3/uL (140-400) Neutrophils (%) (Auto) 79 % (31-73) Lymphocytes (%) (Auto) 12 % (24-48) Monocytes (%) (Auto) 8 % (0-9) Eosinophils (%) (Auto) 1 % (0-3) Basophils (%) (Auto) 0 % (0-3) Neutrophils # (Auto) 11.7 x10^3/uL (1.8-7.7) Lymphocytes # (Auto) 1.8 x10^3/uL (1.0-4.8) Monocytes # (Auto) 1.2 x10^3/uL (0.0-1.1) Eosinophils # (Auto) 0.2 x10^3/uL (0.0-0.7) Basophils # (Auto) 0.1 x10^3/uL (0.0-0.2) Sodium Level 136 mmol/L (136-145) Potassium Level 4.0 mmol/L (3.5-5.1) Chloride Level 100 mmol/L (98-107) Carbon Dioxide Level 29 mmol/L (21-32) Anion Gap 7 (6-14) Blood Urea Nitrogen 6 mg/dL (8-26) Creatinine 1.6 mg/dL (0.7-1.3) Estimated GFR (Cockcroft-Gault) 54.4 Glucose Level 106 mg/dL (70-99) Calcium Level 8.5 mg/dL (8.5-10.1) Micro Micro Microbiology 11/14/18 Urine Culture - Final, Complete 11/14/18 Urine Culture Result 1 (EVA) - Final, Complete Review of Systems Constitutional: yes: alert, oriented Ears/Nose/Throat: Yes: no symptom reported Eyes: Yes: no symptom reported Pulmonary: Yes no symptom reported Cardiovascular: Yes no symptom reported Gastrointestional: Yes: no symptom reported Genitourinary: Yes: no symptom reported Musculoskeletal: Yes: no symptom reported Skin: Yes no symptom reported Psychiatric/Neurological: Yes: no symptom reported Endocrine: Yes: no symptom reported Physical Exam General Appearance: no apparent distress Skin: warm Respiratory: decreased breath sounds Heart: S1S2, RRR Abdomen: soft, bowel sounds present Genitourinary: bladder flat Extremities: pulses present Neurology: alert, oriented Assessment Assessment IMP S/P EXP LAP WITH PANCREATECTOMY AND SPLENECTOMY DEHYDRATION RADHA-IMPROVED WITH CR OF 1.6 LEUCOCYTOSIS-IMPROVING PLAN CONT IVF'S ENC PO WILL FOLLOW JANET MARIN MD Nov 18, 2018 11:08
[2018-11-18] MEDS: HEPARIN for SUB-Q USE 5,000 UNIT/ML VIAL. SQ SCH ×2 (11:13→20:15)
[2018-11-18 11:24] VITALS: BP 156/95
[2018-11-18 15:34] VITALS: BP 137/94
[2018-11-18 19:30] VITALS: BP 146/88
[2018-11-18 23:38] VITALS: BP 150/88
[2018-11-19] MEDS: oxyCODONE/APAP 5/325 1 TAB TABLET PO PRN (06:26)
[2018-11-19 07:00] VITALS: BP 140/91
[2018-11-19] MEDS ORDERED: PANTOPRAZOLE 40 MG TABLET.DR. PO SCH (07:30)
[2018-11-19] MEDS: HEPARIN for SUB-Q USE 5,000 UNIT/ML VIAL. SQ SCH (07:39)
[2018-11-19] MEDS: PANTOPRAZOLE 40 MG TABLET.DR. PO SCH (07:39)
[2018-11-19 09:28] LABS: BASO # 0.1 x10^3/uL (0.0-0.2); BASO % 1 % (0-3); EOS # 0.1 x10^3/uL (0.0-0.7); EOS % 1 % (0-3); HEMATOCRIT 22.1 % (39.0-53.0); HEMOGLOBIN 7.3 g/dL (13.0-17.5); LYMPH # 1.6 x10^3/uL (1.0-4.8); LYMPH % 13 % (24-48); MEAN CORPUSCULAR HEMOGLOBIN 26 pg (25-35); MEAN CORPUSCULAR HGB CONC 33 g/dL (31-37); MEAN CORPUSCULAR VOLUME 79 fL (79-100); MONO # 1.4 x10^3/uL (0.0-1.1); MONO % 11 % (0-9); NEUT # 9.8 x10^3/uL (1.8-7.7); NEUT % 75 % (31-73); PLATELET COUNT 734 x10^3/uL (140-400); RED BLOOD COUNT 2.81 x10^6/uL (4.30-5.70); RED CELL DISTRIBUTION WIDTH 21.2 % (11.5-14.5)
[2018-11-19 09:51] LABS: CALCIUM 8.7 mg/dL (8.5-10.1); CREATININE 1.6 mg/dL (0.7-1.3); GFR 54.4
--- NOTE | 2018-11-19 09:56 | PDOC ---
PROGRESS NOTES Subjective Subjective feels good ,ready to go home Objective Objective Vital Signs Date Time Temp Pulse Resp B/P (MAP) Pulse Ox O2 Delivery O2 Flow Rate FiO2 11/19/18 08:01 Room Air 11/19/18 07:26 96 2.0 11/19/18 07:00 97.9 86 14 140/91 (107) 97.9 Intake and Output 11/19/18 06:59 Intake Total 1950 ml Output Total 90 ml Balance 1860 ml Intake Oral 950 ml IV Total 1000 ml Drainage Total 90 ml Physical Exam Abdomen: Normal bowel sounds, Soft, No tenderness, Other (wounds clean dry and intact JUAN drain in place with serous drainage) General: Alert, Oriented X3, Cooperative, mild distress HEENT: Other (NG present) MUSCULOSKELETAL: No deformity, No swelling COMMENT drain present Assessment Assessment FINAL IMPRESSION:POD#5 1. Large abdominal mass. The patient underwent distal pancreatectomy,s plenectomy. 2. Hypertension. 3. History of Helicobacter pylori gastritis. 4. Ac kidney insufficiency 5. GERD PLAN: d/c home today after surgery clears him. POD#5. 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 Labs Laboratory Tests Test 11/19/18 08:15 White Blood Count 13.0 x10^3/uL (4.0-11.0) Red Blood Count 2.81 x10^6/uL (4.30-5.70) Hemoglobin 7.3 g/dL (13.0-17.5) Hematocrit 22.1 % (39.0-53.0) Mean Corpuscular Volume 79 fL (79-100) Mean Corpuscular Hemoglobin 26 pg (25-35) Mean Corpuscular Hemoglobin Concent 33 g/dL (31-37) Red Cell Distribution Width 21.2 % (11.5-14.5) Platelet Count 734 x10^3/uL (140-400) Neutrophils (%) (Auto) 75 % (31-73) Lymphocytes (%) (Auto) 13 % (24-48) Monocytes (%) (Auto) 11 % (0-9) Eosinophils (%) (Auto) 1 % (0-3) Basophils (%) (Auto) 1 % (0-3) Neutrophils # (Auto) 9.8 x10^3/uL (1.8-7.7) Lymphocytes # (Auto) 1.6 x10^3/uL (1.0-4.8) Monocytes # (Auto) 1.4 x10^3/uL (0.0-1.1) Eosinophils # (Auto) 0.1 x10^3/uL (0.0-0.7) Basophils # (Auto) 0.1 x10^3/uL (0.0-0.2) Microbiology 11/14/18 Urine Culture - Final, Complete 11/14/18 Urine Culture Result 1 (EVA) - Final, Complete Medications Current Medications Pantoprazole Sodium (Protonix) 40 mg DAILYAC PO ; Start 11/19/18 at 07:30; Status UNV Vitals/I & O Vital Sign - Last 24 Hours 11/18/18 11/18/18 11/18/18 11/18/18 11:08 11:24 15:34 17:17 Temp 98.2 99.0 98.2 99.0 Pulse 88 93 Resp 18 18 B/P (MAP) 156/95 (115) 137/94 (108) Pulse Ox 97 98 96 96 O2 Delivery Room Air Room Air Room Air Room Air O2 Flow Rate 2.0 2.0 11/18/18 11/18/18 11/19/18 11/19/18 19:30 23:38 07:00 07:26 Temp 99.8 98.8 97.9 99.8 98.8 97.9 Pulse 92 85 86 Resp 18 18 14 B/P (MAP) 146/88 (107) 150/88 (108) 140/91 (107) Pulse Ox 95 96 99 96 O2 Delivery Room Air Room Air Room Air Room Air O2 Flow Rate 2.0 11/19/18 08:01 O2 Delivery Room Air Intake and Output 11/18/18 11/18/18 11/19/18 14:59 22:59 06:59 Intake Total 300 ml 1450 ml 200 ml Output Total 50 ml 40 ml Balance 250 ml 1450 ml 160 ml LUCA MART MD Nov 19, 2018 09:55
[2018-11-19] MEDS ORDERED: OXYC1TAB15 PO (09:58)
--- NOTE | 2018-11-19 10:00 | NUR ---
JUAN DRAIN REMOVED
--- NOTE | 2018-11-19 10:01 | PDOC ---
SURGICAL PROGRESS NOTE Subjective tolerating diet + flatus no nausea pain managed Vital Signs Vital Signs Date Time Temp Pulse Resp B/P (MAP) Pulse Ox O2 Delivery O2 Flow Rate FiO2 11/19/18 08:01 Room Air 11/19/18 07:26 96 2.0 11/19/18 07:00 97.9 86 14 140/91 (107) 97.9 I&O Intake and Output 11/19/18 06:59 Intake Total 1950 ml Output Total 90 ml Balance 1860 ml Intake Oral 950 ml IV Total 1000 ml Drainage Total 90 ml General: Alert, Oriented X3, Cooperative, No acute distress Abdomen: Soft, Other (incision c/d/i, no erythema, lolis serous ) Labs Laboratory Tests Test 11/18/18 03:50 11/19/18 08:15 White Blood Count 14.9 x10^3/uL (4.0-11.0) 13.0 x10^3/uL (4.0-11.0) Red Blood Count 2.77 x10^6/uL (4.30-5.70) 2.81 x10^6/uL (4.30-5.70) Hemoglobin 7.2 g/dL (13.0-17.5) 7.3 g/dL (13.0-17.5) Hematocrit 21.6 % (39.0-53.0) 22.1 % (39.0-53.0) Mean Corpuscular Volume 78 fL (79-100) 79 fL (79-100) Mean Corpuscular Hemoglobin 26 pg (25-35) 26 pg (25-35) Mean Corpuscular Hemoglobin Concent 33 g/dL (31-37) 33 g/dL (31-37) Red Cell Distribution Width 20.6 % (11.5-14.5) 21.2 % (11.5-14.5) Platelet Count 602 x10^3/uL (140-400) 734 x10^3/uL (140-400) Neutrophils (%) (Auto) 79 % (31-73) 75 % (31-73) Lymphocytes (%) (Auto) 12 % (24-48) 13 % (24-48) Monocytes (%) (Auto) 8 % (0-9) 11 % (0-9) Eosinophils (%) (Auto) 1 % (0-3) 1 % (0-3) Basophils (%) (Auto) 0 % (0-3) 1 % (0-3) Neutrophils # (Auto) 11.7 x10^3/uL (1.8-7.7) 9.8 x10^3/uL (1.8-7.7) Lymphocytes # (Auto) 1.8 x10^3/uL (1.0-4.8) 1.6 x10^3/uL (1.0-4.8) Monocytes # (Auto) 1.2 x10^3/uL (0.0-1.1) 1.4 x10^3/uL (0.0-1.1) Eosinophils # (Auto) 0.2 x10^3/uL (0.0-0.7) 0.1 x10^3/uL (0.0-0.7) Basophils # (Auto) 0.1 x10^3/uL (0.0-0.2) 0.1 x10^3/uL (0.0-0.2) Sodium Level 136 mmol/L (136-145) 137 mmol/L (136-145) Potassium Level 4.0 mmol/L (3.5-5.1) 4.0 mmol/L (3.5-5.1) Chloride Level 100 mmol/L (98-107) 101 mmol/L (98-107) Carbon Dioxide Level 29 mmol/L (21-32) 27 mmol/L (21-32) Anion Gap 7 (6-14) 9 (6-14) Blood Urea Nitrogen 6 mg/dL (8-26) 7 mg/dL (8-26) Creatinine 1.6 mg/dL (0.7-1.3) 1.6 mg/dL (0.7-1.3) Estimated GFR (Cockcroft-Gault) 54.4 54.4 Glucose Level 106 mg/dL (70-99) 96 mg/dL (70-99) Calcium Level 8.5 mg/dL (8.5-10.1) 8.7 mg/dL (8.5-10.1) Laboratory Tests Test 11/19/18 08:15 White Blood Count 13.0 x10^3/uL (4.0-11.0) Red Blood Count 2.81 x10^6/uL (4.30-5.70) Hemoglobin 7.3 g/dL (13.0-17.5) Hematocrit 22.1 % (39.0-53.0) Mean Corpuscular Volume 79 fL (79-100) Mean Corpuscular Hemoglobin 26 pg (25-35) Mean Corpuscular Hemoglobin Concent 33 g/dL (31-37) Red Cell Distribution Width 21.2 % (11.5-14.5) Platelet Count 734 x10^3/uL (140-400) Neutrophils (%) (Auto) 75 % (31-73) Lymphocytes (%) (Auto) 13 % (24-48) Monocytes (%) (Auto) 11 % (0-9) Eosinophils (%) (Auto) 1 % (0-3) Basophils (%) (Auto) 1 % (0-3) Neutrophils # (Auto) 9.8 x10^3/uL (1.8-7.7) Lymphocytes # (Auto) 1.6 x10^3/uL (1.0-4.8) Monocytes # (Auto) 1.4 x10^3/uL (0.0-1.1) Eosinophils # (Auto) 0.1 x10^3/uL (0.0-0.7) Basophils # (Auto) 0.1 x10^3/uL (0.0-0.2) Sodium Level 137 mmol/L (136-145) Potassium Level 4.0 mmol/L (3.5-5.1) Chloride Level 101 mmol/L (98-107) Carbon Dioxide Level 27 mmol/L (21-32) Anion Gap 9 (6-14) Blood Urea Nitrogen 7 mg/dL (8-26) Creatinine 1.6 mg/dL (0.7-1.3) Estimated GFR (Cockcroft-Gault) 54.4 Glucose Level 96 mg/dL (70-99) Calcium Level 8.7 mg/dL (8.5-10.1) Assessment/Plan remove drain ok to dc home FU 1-2 weeks scripts on chart LEW PHILIPPE APRN Nov 19, 2018 10:01
--- NOTE | 2018-11-19 10:46 | NUR ---
Discharge Note: BOYD WARD [address] [place] [address] Discharge instructions and discharge home medications reviewed with Patient and a copy given. All questions have been answered and understanding verbalized. The following instructions and handouts were given: FOLLOW UP INSTRUCTIONS, ACTIVITY LEVEL, AND MEDICATION LIST. Discontinued lines and drains: Peripheral IV DISCONTINUED AND CATHETER intact. Patient discharged to Home or Self Care with Family Member via [facility].
--- NOTE | 2018-11-19 11:17 | PDOC ---
Renal-Progress Notes Subjective Notes Notes FEELING BETTER History of Present Illness Hx of present illness STABLE Vitals Vitals Vital Signs Date Time Temp Pulse Resp B/P (MAP) Pulse Ox O2 Delivery O2 Flow Rate FiO2 11/19/18 08:01 Room Air 11/19/18 07:26 96 2.0 11/19/18 07:00 97.9 86 14 140/91 (107) 97.9 Weight Weight [ ] I.O. Intake and Output Intake and Output 11/19/18 06:59 Intake Total 1950 ml Output Total 90 ml Balance 1860 ml Intake Oral 950 ml IV Total 1000 ml Drainage Total 90 ml Labs Labs Laboratory Tests Test 11/19/18 08:15 White Blood Count 13.0 x10^3/uL (4.0-11.0) Red Blood Count 2.81 x10^6/uL (4.30-5.70) Hemoglobin 7.3 g/dL (13.0-17.5) Hematocrit 22.1 % (39.0-53.0) Mean Corpuscular Volume 79 fL (79-100) Mean Corpuscular Hemoglobin 26 pg (25-35) Mean Corpuscular Hemoglobin Concent 33 g/dL (31-37) Red Cell Distribution Width 21.2 % (11.5-14.5) Platelet Count 734 x10^3/uL (140-400) Neutrophils (%) (Auto) 75 % (31-73) Lymphocytes (%) (Auto) 13 % (24-48) Monocytes (%) (Auto) 11 % (0-9) Eosinophils (%) (Auto) 1 % (0-3) Basophils (%) (Auto) 1 % (0-3) Neutrophils # (Auto) 9.8 x10^3/uL (1.8-7.7) Lymphocytes # (Auto) 1.6 x10^3/uL (1.0-4.8) Monocytes # (Auto) 1.4 x10^3/uL (0.0-1.1) Eosinophils # (Auto) 0.1 x10^3/uL (0.0-0.7) Basophils # (Auto) 0.1 x10^3/uL (0.0-0.2) Sodium Level 137 mmol/L (136-145) Potassium Level 4.0 mmol/L (3.5-5.1) Chloride Level 101 mmol/L (98-107) Carbon Dioxide Level 27 mmol/L (21-32) Anion Gap 9 (6-14) Blood Urea Nitrogen 7 mg/dL (8-26) Creatinine 1.6 mg/dL (0.7-1.3) Estimated GFR (Cockcroft-Gault) 54.4 Glucose Level 96 mg/dL (70-99) Calcium Level 8.7 mg/dL (8.5-10.1) Micro Micro Microbiology 11/14/18 Urine Culture - Final, Complete 11/14/18 Urine Culture Result 1 (EVA) - Final, Complete Review of Systems Constitutional: yes: alert, oriented Ears/Nose/Throat: Yes: no symptom reported Eyes: Yes: no symptom reported Pulmonary: Yes no symptom reported Cardiovascular: Yes no symptom reported Gastrointestional: Yes: no symptom reported Genitourinary: Yes: no symptom reported Musculoskeletal: Yes: no symptom reported Skin: Yes no symptom reported Psychiatric/Neurological: Yes: no symptom reported Endocrine: Yes: no symptom reported Physical Exam General Appearance: no apparent distress Skin: warm Respiratory: decreased breath sounds Heart: S1S2, RRR Abdomen: soft, bowel sounds present Genitourinary: bladder flat Extremities: pulses present Neurology: alert, oriented Assessment Assessment IMP S/P EXP LAP WITH PANCREATECTOMY AND SPLENECTOMY DEHYDRATION RADHA-RESOLVING, CR OF 1.6 MAY BE HIS BASELINE AND HE PROBABLY HAS SOME CKD PLAN ENC PO D/C IVF'S WILL FOLLOW JANET MARIN MD Nov 19, 2018 11:17
--- NOTE | 2018-11-22 10:45 | PDOC3 ---
Discharge Summary Visit Information Date of Admission: Nov 14, 2018 Date of Discharge: Nov 19, 2018 Admitting Diagnosis: Left upper quadrant mass, large, neuroendocrine tumor (b Final Diagnosis Left upper quadrant mass, large, neuroendocrine tumor (by biopsy) Brief Hospital Course Allergies Allergies Coded Allergies Type Severity Reaction Last Updated Verified No Known Drug Allergies 11/14/18 No Brief Hospital Course Mr. Carey is a 58 old male who underwent Exploratory laparotomy, en bloc excision of large LUQ mass, distal pancreatectomy/splenectomy, ligation of inferior mesenteric vein. Postoperatively bowel function slowly returned. He was evaluated by nephrology for acute kidney injury. His kidney function was stable at discharge. Pain was managed and he was tolerating a regular diet. Ready for discharge home Discharge Information Condition at Discharge: Stable Follow Up: Weeks (1-2) Disposition/Orders: D/C to Home Scheduled Amlodipine Besylate (Amlodipine Besylate) 5 Mg Tablet, 5 MG PO DAILY for HTN, (Reported) Entered as Reported by: LISE ARTEAGA on 10/29/18919 Last Taken: Unknown Dose on 11/14/18599 Last Action: Last Taken Edited on 11/14/181126 by Lise Bach Pantoprazole Sodium (Protonix ) 40 Mg Tablet.dr, 40 MG PO DAILYAC for GERD, (Reported) Entered as Reported by: LISE ARTEAGA on 10/29/18919 Last Taken: Unknown Dose on 11/14/18599 Last Action: Continued on 11/18/18 08 by LAWSON LAM Scheduled PRN Oxycodone/Apap 5-325 (Percocet 5-325 Mg Tablet ) 1 Each Tablet, 1 TAB PO PRN Q4HRS PRN for MODERATE PAIN for 7 Days Prescribed by: LUCA MART on 11/19/18 0958 Discontinued Medications Sucralfate (Carafate) 1 Gm Tablet, 1 TAB PO TIDAC for GERD, #120 Ref 1 (Reported) Entered as Reported by: LISE ARTEAGA on 10/29/18921 Last Taken: Unknown Dose on 11/13/181999 Last Action: Last Taken Edited on 11/14/181126 by Lise Bach Tramadol Hcl (Tramadol Hcl) 50 Mg Tablet, 50 MG PO DAILY PRN for PAIN, Ref 0 (Reported) Entered as Reported by: WAGNER CONTRERAS on 11/13/18 1403 Last Taken: Unknown Dose on 11/13/181999 Last Action: Last Taken Edited on 11/14/18 1127 by LEW Prado APRN Nov 22, 2018 10:45
--- NOTE | 2018-11-23 12:07 | PATHOLOGY ---
[facility] Accession Number: [id number] . 01 Material submitted: . PART A: kidney - MASS OVERLYING KIDNEY PART B: abdomen - LEFT UPPER QUADRANT EN BLOC RESECTION. Modifiers: left, upper PART C: pancreas - ADDITIONAL TUMOR . 02 Diagnosis: A. Fibroadipose tissue, mass overlying kidney, excision: - Well-differentiated pancreatic neuroendocrine tumor. . B. Distal pancreas and spleen, left upper quadrant en bloc resection: - Well-differentiated pancreatic neuroendocrine tumor, Grade 3, forming a large well circumscribed multinodular tumor mass of the distal pancreas measuring 17.8 cm in greatest dimension. - Proximal pancreatic margin of resection negative for tumor. - Tumor focally less than 1 mm from the closest inked circumferential margin. - No lymphovascular tumor invasion identified. - Four peripancreatic and five splenic hilar lymph nodes negative for tumor. - Capsular tear and focal recent hemorrhage of spleen. . C. Additional tumor tissue: - Well-differentiated pancreatic neuroendocrine tumor, Grade 3. (JPM:rigo/rubina; 11/19/2018) . SURGICAL PATHOLOGY CANCER CASE SUMMARY . PANCREAS NEUROENDOCRINE TUMOR Procedure ___ Distal pancreatectomy with splenectomy Tumor Site ___ Distal pancreas Tumor Size Greatest dimension: 17.8 cm Tumor Focality ___ Unifocal Histologic Type and Grade ___ G3: Well-differentiated neuroendocrine tumor Mitotic Rate ___ >20 mitoses per 2mm squared + Specify mitoses per 2mm squared: 20-30 Ki-67 Labeling Index ___ >20% + Specify Ki-67 percentage: 50-60% + Functional Type + ___ Pancreatic neuroendocrine tumor, nonfunctional + Tumor Necrosis + ___ Not identified Tumor Extension ___ Tumor is limited to the pancreas Margins ___ All margins are uninvolved by tumor Margins examined: Proximal pancreatic and circumferential peripancreatic soft tissue margins + Distance of tumor from closest margin: < 1 mm + Specify closest margin: Circumferential peripancreatic soft tissue margin Regional Lymph Nodes Number of Lymph Nodes Involved: 0 Number of Lymph Nodes Examined: 9 Lymphovascular Invasion ___ Not identified Perineural Invasion ___ Not identified . Pathologic Stage Classification (pTNM, AJCC 8th Edition) Primary Tumor (pT) ___ pT3: Tumor limited to the pancreas, >4 cm Regional Lymph Nodes (pN) ___ pN0: No regional lymph node involvement + Additional Pathologic Findings + ___ None identified + Clinical History + ___ Not specified (JPM/db; 11/23/2018) MBR/11/23/2018 . 02 Comment: Sections of the distal pancreatic mass reveal a neoplasm composed of a proliferation of fairly regular appearing tumor cells having a nested, trabecular, and focal acinar/pseudorosette arrangement. The tumor cells have modest amounts of eosinophilic cytoplasm, and possess rounded to ovoid nuclei containing inconspicuous nucleoli. There are prominent areas of tumor necrosis. The tumor shows focally prominent areas of mitotic activity. These areas show greater than 20-30 mitotic figures per 10 high power shearer. The tumor appears to arise within the distal pancreas and has a fibrous pseudocapsule. The tumor is focally less than 1 mm from the circumferential inked margin of resection. The proximal pancreatic margin of resection is negative for tumor. There is no definitive lymphovascular tumor invasion. There are four peripancreatic and five splenic hilar lymph nodes which are negative for tumor. A panel of immunoperoxidase stains is obtained and yields the following results: . CAM5.2 (C1): Tumor cells positive Synaptophysin (C1): Tumor cells positive Chromogranin (C1): Negative for tumor CD56 (C1): Tumor cells focally positive Ki-67 (C1): High proliferation index (50-60%) Ki-67 (B15): High proliferation index (30-40% up to 60%) . The morphologic and immunophenotypic findings are supportive of the diagnosis of well-differentiated pancreatic neuroendocrine tumor, Grade 3. . Section of the mass overlying the kidney reveals an additional well circumscribed nodule of pancreatic neuroendocrine tumor which again is surrounded by a fibrous pseudocapsule. There is no evidence of renal invasion. . The case is also examined by Dr. Carvalho, who concurs with the diagnosis. The results are discussed with Dr. Aleman on 11/23/18 at 8:00 AM. (JPM:pit 11/22/2018) . 02 Electronically signed: . Rickey Turner MD, Pathologist NPI- [id number] . 01 Gross description: . A. The specimen is received in formalin, labeled "Best Carey, mass overlying kidney" and consists of a pink-sharma nodule measuring 1.8 x 1.0 x 0.8 cm with a staple line measuring 2.0 cm. The sharyn are removed and this margin is inked black. It is serially sectioned and entirely submitted in A1. . B. The specimen is received fresh for intraoperative specimen orientation and to take a picture of the external surfaces. . The specimen is received in formalin, labeled "Best Carey, left upper quadrant en bloc resection" is a distal pancreas resection weighing 1712 g and measuring 19.8 x 13.9 x 11.7 cm. Blue ink is present at the pancreatic margin. Present is the distal pancreas (7.0 x 5.8 x 1.1 cm), encapsulated tumor mass (17.8 x 13.6 x 11.7 cm), and spleen (8.8 x 5.0 x 3.1 cm, 50 g). The external surface of the specimen is sharma-brown, hemorrhagic with adhesions and an area of disruption on the lateral aspect measuring 3.0 cm in greatest dimension. Protruding from the disrupted area is a sharma tumor. The spleen is brown showing a partially disrupted external capsule. The specimen is bivalved revealing the encapsulated tumor mass appears to arise from the distal pancreas and shows variegated pink-sharma, hemorrhagic, and soft to necrotic cut surfaces. The necrosis occupies approximately 30% of the tumor mass. Multiple gross photos are taken of the cut surfaces. The tumor mass extends 0.5 cm from the pancreatic margin, 2.1 cm from the spleen, and 0.1 cm or less from the closest capsule margin (inferior). The spleen hilar fat reveals no lymph nodes candidates. The spleen shows a soft brown-red parenchyma with no masses or lesions. No additional masses or lesions are identified and workforce services representative sections are submitted as follows: . B1-B4: Pancreatic margin, perpendicular sections B5: Tumor to superior (inked black) and inferior (green) capsule B6: Tumor to medial aspect (red) B7-B10: Mass to pancreas B11-B13: Mass to necrosis B14-B16: Additional mass B17: Mass to hilum B18: Spleen to hilum B19: Spleen with disruption . C. The specimen is received in formalin, labeled "Best Carey, additional tumor" and consists of a 17 g aggregate of soft rubbery tissue predominantly consisting of tumor mass measuring 7.0 x 5.8 x 1.3 cm in aggregate. Crown Ironer Operator sections are submitted in C1-C2. (SDY; 11/16/2018) SYU/SYU . 02 Pathologist provided ICD-10: C7A.1 . 02 CPT . 660375, 958621, 427842, M17885, I52918 Specimen Comment: A courtesy copy of this report has been sent to Specimen Comment: [phone], . Specimen Comment: Report sent to / DR MART Performed at: 01 [facility] [address], [place], [place] [id number] MD Kenny Sutton MD Phone: [phone] Performed at: 02 [facility] [address] [place], [place] [id number] MD Rickey Turner MD Phone: [phone]
== END 2018-11-19 10:50 | disposition home or self-care (01) | DRG 826 ==
LOC: OPSVCIP 11:00 → 1 WEST ICU 18:10 → 6 SOUTH 11-15 16:41
PROVIDERS: ADMIT Surgery; ATTEND Surgery
PROC: 0FBG0ZZ Excision of Pancreas, Open Approach (ICD-10-PCS; 2018-11-14)
PROC: 07BP0ZZ Excision of Spleen, Open Approach (ICD-10-PCS; 2018-11-14)
PROC: 0WJH0ZZ Inspection of Retroperitoneum, Open Approach (ICD-10-PCS; principal; 2018-11-14 13:00)
PROC: 0DQ80ZZ Repair Small Intestine, Open Approach (ICD-10-PCS; 2018-11-14 13:00)
PROC: 30233N1 Transfusion of Nonautologous Red Blood Cells into Peripheral Vein, Percutaneous Approach (ICD-10-PCS; 2018-11-14 13:00)
DX: D3A.8 Other benign neuroendocrine tumors (principal); N17.0 Acute kidney failure with tubular necrosis; Z87.11 Personal history of peptic ulcer disease; N18.9 Chronic kidney disease, unspecified; I12.9 Hypertensive chronic kidney disease with stage 1 through stage 4 chronic kidney disease, or unspecified chronic kidney disease; F17.210 Nicotine dependence, cigarettes, uncomplicated; K21.9 Gastro-esophageal reflux disease without esophagitis; E86.0 Dehydration; D72.829 Elevated white blood cell count, unspecified; Z86.19 Personal history of other infectious and parasitic diseases; Z83.3 Family history of diabetes mellitus
CPT/HCPCS: 36415; 74018; 76770; 80048; 80053; 81001; 85007; 85025; 85027; 86850; 86900; 86901; 86920; 87086; 87641; 88305; 88309; 88341; 88342; A7015; J0171; J0696; J1100; J1644; J1885; J2001; J2250; J2270; J2370; J2405; J2704; J2710; J2795; J3010; J3490; J7120; P9016; P9045; 97530

== ENCOUNTER → 2019-02-25 | Outpatient (CLI) | payer BC ==
[~2019-02-25] MED LIST changes: +CONTRAST GIVEN. MC PRN; -DEXAMETHASONE SOD PHOS 20 MG/5 ML VIAL. ONE; -HYDROmorphone 2 MG/ML VIAL IV PRN; +IOHEXOL 240 MG/ML 50ML VIAL. PO ONE; +IOHEXOL 300 MG/ML 100ML VIAL. IV ONE; -IV RINGERS,LACTATED 1000ML 1,000 ML IV SCH; -LIDOCAINE 2% PF 5 ML VIAL. ONE; -MORPHINE SULFATE 2 MG/ML VIAL. IV PRN; -ONDANSETRON PF 4 MG/2 ML VIAL. IV PRN; -ONDANSETRON PF 4 MG/2 ML VIAL. ONE; +OXYC1TAB15 PO; -PHENYLEPHRINE in 0.9% NACL PF 1 MG/10 ML SYRINGE. IV ONE; -PROCHLORPERAZINE 10 MG/2 ML VIAL. IV PRN; -PROPOFOL 20 ML IV ONE; -ROCURONIUM 100 MG/10 ML VIAL. ONE; -ePHEDrine PF IN SALINE 50 MG/10 ML SYRINGE. IV ONE; -fentaNYL PF VIAL 100 MCG/2 ML VIAL IV PRN
--- NOTE | 2019-02-26 12:17 | RAD ---
CT CHEST ABD PELVIS W/CONTRAST Indication: Neuroendocrine tumor of the pancreas Technique: Postcontrast CT imaging was performed of the chest, abdomen, pelvis, multiplanar reconstruction images submitted. Oral contrast was also given. One or more of the following individualized dose reduction techniques were utilized for this examination: 1. Automated exposure control 2. Adjustment of the mA and/or kV according to patient size 3. Use of iterative reconstruction technique. Comparison: October 25, 2018 Chest Findings: There is no new pulmonary nodularity, pleural effusion, infiltrate, or pneumothorax. Thoracic aortic caliber is within normal limits, no dissection flap. There is minimal coronary calcification. There is now trace pericardial fluid. No new significant lymphadenopathy is identified of the chest. IMPRESSION: 1. There is no new pulmonary nodularity or chest lymphadenopathy. Abdomen pelvis FINDINGS: Previously seen large left upper quadrant mass is no longer present. There has been partial pancreatectomy and splenectomy. There is relative wall prominence of the stomach. There is focus of somewhat nodular appearing density in the left upper quadrant extending to expected region of adrenal gland such as seen images 14 through 22 measuring about 3 cm transverse by 3.3 cm AP by about 3.1 cm cc. Both kidneys enhance, no hydronephrosis. Gallbladder is present without obvious intraluminal abnormality by CT. No new focal abnormality is identified of the liver. Bowel is not dilated. There is no free fluid or free air. There is multilevel spondylosis L3-4 to L5-S1. IMPRESSION: 1. Previously seen large upper quadrant mass is no longer present, some residual somewhat nodular appearing density present in the left upper quadrant possible residual or recurrent mass for which attention on follow-up advised. Electronically signed by: Denys Allen MD (02/26/2019 12:14 PM) [facility]
== END | disposition home or self-care (01) ==
LOC: CT 15:38
PROVIDERS: ATTEND Internal Medicine Hematology & Oncology
DX: D3A.8 Other benign neuroendocrine tumors (principal); I25.10 Atherosclerotic heart disease of native coronary artery without angina pectoris; M47.817 Spondylosis without myelopathy or radiculopathy, lumbosacral region; I10 Essential (primary) hypertension; F17.200 Nicotine dependence, unspecified, uncomplicated; Z90.89 Acquired absence of other organs
CPT/HCPCS: 71260; 74177; Q9966; Q9967

== ENCOUNTER → 2019-05-10 | Outpatient (CLI) | payer BC ==
[~2019-05-10] MED LIST changes: -CONTRAST GIVEN. MC PRN
--- NOTE | 2019-05-10 15:30 | RAD ---
CT CT of the chest, abdomen and pelvis 05/10/2019 INDICATION: Neuroendocrine tumor of the pancreas. COMPARISON STUDY: CT of the chest, abdomen, and pelvis. February 25, 2019 TECHNIQUE: Multidetector CT imaging of the chest, abdomen, and pelvis was performed following the administration of IV contrast. FINDINGS: Heart size is normal. No pericardial effusion is identified. No mediastinal adenopathy is seen. No pneumothorax, pleural effusion, or focal consolidative infiltrate is identified. No concerning pulmonary nodules or masses are seen. No acute bony changes involving the thorax are identified. In the interim since prior exam there is been significant progression of metastatic disease involving the abdomen and pelvis. There is also now an umbilical mass measuring 3.6 x 2.2 x 3.9 cm. Multiple abdominal mesenteric masses are now seen. Some of these represent marketed increase in size from small mesenteric nodules described on comparison exam. There is a conglomeration of masses in the left upper abdomen immediately anterior to the left kidney extending into the left upper, middle, lower abdominal mesentery. No gross abnormality of the pancreatic head and proximal body are seen. The pancreatic tail is compliant with the aforementioned abdominal masses. The left adrenal gland is nonvisualized. The liver and gallbladder are unremarkable. Immediately posterior to the inferior most right liver consistent with metastatic disease. Scattered mesenteric masses in the right abdomen are also seen. No free fluid or free air is seen in the abdomen or pelvis. Enlarged mesenteric veins are seen throughout the abdomen likely relating to malignancy. No evidence of acute osseous changes are identified. The pancreas is somewhat poorly delineated on this exam. IMPRESSION: 1. Significant progression of abdominal and pelvic metastatic disease. 2. No evidence of acute cardiopulmonary process is identified. CT DOSING PQRS STATEMENT: One or more of the following individualized dose reduction techniques were utilized for this examination: 1. Automated exposure control 2. Adjustment of the mA and/or kV according to patient size 3. Use of iterative reconstruction technique Electronically signed by: Adam Evans MD (05/10/2019 3:27 PM) [facility]
== END | disposition home or self-care (01) ==
LOC: CT 12:21
PROVIDERS: ATTEND Internal Medicine Hematology & Oncology
DX: C79.89 Secondary malignant neoplasm of other specified sites (principal); D3A.8 Other benign neuroendocrine tumors
CPT/HCPCS: 71260; 74177; Q9966; Q9967

== ENCOUNTER 2019-05-30 08:07 | Outpatient (CLI) | payer BC ==
[~2019-05-30] VITALS: Ht 188 cm; Wt 86.2 kg
[2019-05-30] VITALS (11 sets, daily range): BP systolic 124–145; BP diastolic 69–95
[~2019-05-30 08:07] MED LIST changes: -IOHEXOL 240 MG/ML 50ML VIAL. PO ONE; -IOHEXOL 300 MG/ML 100ML VIAL. IV ONE
[2019-05-30 08:39] LABS: BASO # 0.3 x10^3/uL (0.0-0.2); BASO % 3 % (0-3); EOS # 0.5 x10^3/uL (0.0-0.7); EOS % 5 % (0-3); HEMATOCRIT 34.9 % (39.0-53.0); HEMOGLOBIN 11.4 g/dL (13.0-17.5); LYMPH # 2.9 x10^3/uL (1.0-4.8); LYMPH % 32 % (24-48); MEAN CORPUSCULAR HEMOGLOBIN 24 pg (25-35); MEAN CORPUSCULAR HGB CONC 33 g/dL (31-37); MEAN CORPUSCULAR VOLUME 74 fL (79-100); MONO # 0.5 x10^3/uL (0.0-1.1); MONO % 6 % (0-9); NEUT # 4.8 x10^3/uL (1.8-7.7); NEUT % 53 % (31-73); PLATELET COUNT 735 x10^3/uL (140-400); RED BLOOD COUNT 4.71 x10^6/uL (4.30-5.70); RED CELL DISTRIBUTION WIDTH 18.3 % (11.5-14.5)
[2019-05-30] MEDS ORDERED: MIDAZOLAM HCL/PF 2 MG/2 ML VIAL. ONE (08:57)
[2019-05-30] MEDS ORDERED: fentaNYL PF VIAL 100 MCG/2 ML VIAL ONE (08:57)
[2019-05-30 08:59] LABS: PROTHROMBIN TIME PATIENT 13.1 SEC (11.7-14.0)
[2019-05-30] MEDS ORDERED: fentaNYL PF VIAL 100 MCG/2 ML VIAL IV ONE (09:30)
[2019-05-30] MEDS ORDERED: MIDAZOLAM HCL/PF 2 MG/2 ML VIAL. IV ONE (09:30)
[2019-05-30] MEDS ORDERED: LIDOCAINE WITH 8.4% SOD BICARB 3 ML DISP.SYRIN. ONE (09:56)
[2019-05-30] MEDS ORDERED: LIDOCAINE WITH 8.4% SOD BICARB 3 ML DISP.SYRIN. IJ ONE (10:45)
--- NOTE | 2019-05-30 12:04 | NUR ---
Discharge Note: ALEXY WARD Discharge instructions and discharge home medications reviewed with Patient and a copy given. All questions have been answered and understanding verbalized. The following instructions and handouts were given: Biopsy, Care After and adult moderate sedation Discontinued lines and drains: Peripheral IV intact. Patient discharged to Home or Self Care withFamily Membervia Wheelchair
--- NOTE | 2019-05-31 15:54 | RAD ---
Ultrasound-guided biopsy, periumbilical mass 05/30/2019 INDICATION: 05/31/2019 1:50 PM Clinical Indication: Likely metastatic pancreatic neuroendocrine tumor. Evaluate for change in tumor grading. Discussion: The procedure was explained in its entirety to the patient or the patients designated passenger relations representative by a member of the treatment team, including a discussion of the risks, benefits and commonly accepted alternatives to the procedure, as well as the expected consequences of no therapy whatsoever. Discussion of the risks included, but was not limited to, those that are most frequent and those that are rare but possibly severe or life-threatening, as well as the possibility of unforeseen complications. All elements of maximal sterile barrier technique including the use of a cap, mask, sterile gown, sterile gloves, large sterile sheet, appropriate hand hygiene, and 2% chlorhexidine for cutaneous antisepsis (or acceptable alternative antiseptic per current guidelines) were followed for this procedure. Ultrasound evaluation demonstrates a solid mass inferior to the umbilicus, within subcutaneous tissues, similar to prior CT imaging. The overlying skin was prepped and draped as described. 1% lidocaine was administered for local anesthesia. 18-gauge core biopsy samples were obtained under direct ultrasound guidance. Manual pressure was held. Sterile dressings were applied. The procedures performed under conscious sedation including continuous cardiopulmonary monitoring via dedicated sedation nurse. [id number] sedation time: 15 minutes Impression: Ultrasound-guided biopsy, periumbilical mass in the anterior abdominal wall
--- NOTE | 2019-06-03 15:07 | PATHOLOGY ---
[facility] Accession Number: [id number] . 01 Material submitted: . abdomen - ABDOMINAL MASS CORE BIOPSY . 01 Clinical history: . Abdominal mass . 02 Diagnosis: Abdominal mass, needle biopsies: - METASTATIC WELL DIFFERENTIATED NEUROENDOCRINE TUMOR, GRADE 3. SEE COMMENT. . (JPM:lamont; 05/31/2019) S 06/03/2019 1356 Local . 02 Comment: Sections of the abdominal mass needle biopsy reveal a metastatic neoplasm having neuroendocrine features. The neoplasm is composed of a proliferation of fairly regular-appearing tumor cells having a nested and trabecular arrangement and showing focal acinar/shay formation. The tumor cells have modest amounts of eosinophilic cytoplasm, and possess rounded to ovoid nuclei having an evenly dispersed chromatin and inconspicuous nucleoli. There is no evidence of tumor necrosis. The tumor is mitotically active, showing up to approximately 20 mitotic figures within a single high power field. A panel of immunoperoxidase stains is obtained on block A1 and yields the following results: . CAM5.2: Tumor cells positive Synaptophysin: Tumor cells positive Chromoagranin: Tumor cells negative CD56: Tumor cells focally positive. Ki-67: Tumor cells focally show high proliferation index 50-60%. . . The morphologic and immunophenotypic findings are supportive of the diagnosis of metastatic well differentiated neuroendocrine tumor, grade 3. The tumor appear similar to that identified within the pancreatic resection ([id number]) and previous abdominal mass biopsy ([id number]). The case is also examined by Dr. Carvalho, who concurs with the diagnosis. The results are discussed with Dr. Morel. (JPM:lamont/liner assembler; 05/31/2019) . . Special stains performed: Immunoperoxidase stains for CAM5.2, synaptophysin, chromogranin, CD56, and Ki-67 on A1. . 02 Electronically signed: . Rickey Turner MD, Pathologist NPI- [id number] . 01 Gross description: . The specimen is received in formalin, labeled "Best Carey, abdominal mass biopsy" and consists of 3 distinct needle cores of pink-sharma tissue measuring between 1.0 cm and 1.4 cm in length and 0.1 cm each in diameter. Also received are multiple needle core fragments measuring 1.0 x 0.2 x 0.1 cm in aggregate. The distinct cores are submitted in A1-A2 and the fragments in A3. (SDY; 05/30/2019) SYU/SYU 05/30/2019 1544 Local . 02 Pathologist provided ICD-10: C78.89 . 02 CPT . 202230, M36682, [id number] Specimen Comment: A courtesy copy of this report has been sent to [phone] Specimen Comment: [phone], Specimen Comment: Report sent to ,DR MOREL / DR MART Performed at: 01 [facility] [address] [facility] [address], [place] [id number] MD Kenny Sutton MD Phone: [phone] Performed at: 02 [facility] [address] [place] [id number] MD Rickey Turner MD Phone: [phone]
== END 2019-05-30 11:45 | disposition home or self-care (01) ==
LOC: INTRAD 08:07
PROVIDERS: ATTEND Internal Medicine Hematology & Oncology
DX: C7B.8 Other secondary neuroendocrine tumors (principal); D3A.8 Other benign neuroendocrine tumors; I10 Essential (primary) hypertension; K21.9 Gastro-esophageal reflux disease without esophagitis; K44.9 Diaphragmatic hernia without obstruction or gangrene; F17.210 Nicotine dependence, cigarettes, uncomplicated; Z98.890 Other specified postprocedural states; Z79.899 Other long term (current) drug therapy
CPT/HCPCS: 36415; 49180; 76942; 85025; 85610; 88305; 88341; 88342; J2250; J3010; 99152

== ENCOUNTER → 2019-06-06 | Outpatient (CLI) | payer BC ==
[2019-06-06 12:05] VITALS: BP 144/86
--- NOTE | 2019-06-06 16:22 | RAD ---
Nuclear medicine whole body bone scan History: Pancreatic cancer, back pain. Comparison: Whole-body bone scan October 30, 2018. CT chest abdomen and pelvis with contrast, May 10, 2019. Technique: Examination performed after intravenous administration of 25 mCi Technetium 99m MDP. Images of the whole body were obtained in the anterior and posterior projections. Findings: No suspicious increased or decreased tracer uptake is identified. Tracer uptake in the spine is relatively homogeneous. Mild focal tracer uptake of the left lateral cervical spine is nonspecific but may be due to facet hypertrophy. Tracer uptake in ribs and pelvic bones is symmetric. Tracer distribution in the soft tissues appears normal. Impression: No scintigraphic evidence of bone metastasis. Electronically signed by: Kg Smith MD (06/06/2019 4:19 PM) [id number]
== END | disposition home or self-care (01) ==
LOC: NM 15:47
PROVIDERS: ATTEND Psychiatry & Neurology Child & Adolescent Psychiatry
DX: D3A.8 Other benign neuroendocrine tumors (principal)
CPT/HCPCS: 78306; A9503

== ENCOUNTER → 2019-06-06 | Outpatient (CLI) | payer BC ==
[~2019-06-06] VITALS: Ht 188 cm; Wt 85.7 kg
[2019-06-06] VITALS (7 sets, daily range): BP systolic 142–159; BP diastolic 83–98
[~2019-06-06] MED LIST changes: +LIDOCAINE 1%/EPI 1:100,000 20 ML VIAL. ONE; +LIDOCAINE 1%/EPI 1:100,000 20 ML VIAL. SQ ONE; +MIDAZOLAM HCL/PF 2 MG/2 ML VIAL. IV ONE; +MIDAZOLAM HCL/PF 2 MG/2 ML VIAL. ONE; +fentaNYL PF VIAL 100 MCG/2 ML VIAL IV ONE; +fentaNYL PF VIAL 100 MCG/2 ML VIAL ONE
--- NOTE | 2019-06-06 12:59 | RAD ---
Procedure: Ultrasound and fluoroscopically guided placement of right internal jugular power port.. 06/06/2019 10:55 AM Clinical Indication: Chemotherapy Sedation: Conscious sedation was administered for 30 minutes. The patient was monitored by a qualified independent observer throughout the time of sedation. Please refer to the medical record for exact doses of medications utilized to achieve moderate sedation. Total fluoroscopy time: 0.3 MIN Dose area product: 0.3 Gycm2 [id number] moderate sedation time:: 44 MIN Consent: The procedure was explained in its entirety to the patient or the patients designated physician representative by a member of the treatment team, including a discussion of the risks, benefits and commonly accepted alternatives to the procedure, as well as the expected consequences of no therapy whatsoever. Discussion of the risks included, but was not limited to, those that are most frequent and those that are rare but possibly severe or life-threatening, as well as the possibility of unforeseen complications. Technique and Findings: All elements of maximal sterile barrier technique including the use of a cap, mask, sterile gown, sterile gloves, large sterile sheet, appropriate hand hygiene, and 2% chlorhexidine for cutaneous antisepsis (or acceptable alternative antiseptic per current guidelines) were followed for this procedure. Following informed consent, and a timeout procedure, the patient was prepped and draped in the usual sterile fashion. Ultrasound interrogation of the right neck revealed patency and compressibility of the right internal jugular vein. A 21-gauge micropuncture was then used to gain access to this vein under ultrasound guidance. A hard copy ultrasound image was recorded. The needle was exchanged over a wire for a sheath. A 1 inch incision was made several centimeters inferior to the venotomy site. A catheter was tunneled from this site dermatotomy site in the neck. Catheter was advanced through peel-away sheath such that its tip was in the proximal right atrium with the patient supine. The catheter was trimmed to length and connected to the port reservoir. The port was found to flush and aspirate normally. The wound was closed in layers using 4-0 Vicryl suture. Sterile dressings were applied. Impression: Successful ultrasound and fluoroscopically guided placement of a right internal jugular PowerPort
== END | disposition home or self-care (01) ==
LOC: INTRAD 08:19
PROVIDERS: ATTEND Internal Medicine Hematology & Oncology
DX: D3A.8 Other benign neuroendocrine tumors (principal); Z79.899 Other long term (current) drug therapy
CPT/HCPCS: 36561; 76937; 77001; 99152; 99153; C1751; C1892; J0696; J2250; J3010; J3490

== ENCOUNTER → 2019-09-25 | Outpatient (CLI) | payer BC ==
[2019-06-06 12:05] VITALS: BP 144/86
[~2019-09-25] MED LIST changes: +CONTRAST GIVEN. MC PRN; +IOHEXOL 240 MG/ML 50ML VIAL. PO ONE; -LIDOCAINE 1%/EPI 1:100,000 20 ML VIAL. ONE; -LIDOCAINE 1%/EPI 1:100,000 20 ML VIAL. SQ ONE; -MIDAZOLAM HCL/PF 2 MG/2 ML VIAL. IV ONE; -MIDAZOLAM HCL/PF 2 MG/2 ML VIAL. ONE; -fentaNYL PF VIAL 100 MCG/2 ML VIAL IV ONE; -fentaNYL PF VIAL 100 MCG/2 ML VIAL ONE
--- NOTE | 2019-09-25 09:56 | RAD ---
CT CHEST ABDOMEN PELVIS WO Indication: Neuroendocrine carcinoma of the pancreas Technique: Noncontrast CT imaging was performed of the chest, abdomen, pelvis, multiplanar reconstruction images submitted. Oral contrast was given. One or more of the following individualized dose reduction techniques were utilized for this examination: 1. Automated exposure control 2. Adjustment of the mA and/or kV according to patient size 3. Use of iterative reconstruction technique. Comparison: May 10, 2019 CHEST: Findings: As described for abdominal exam, there is increased left subdiaphragmatic nodularity. Small nodule projects superior to the left hemidiaphragm about 0.7 cm image 10 series 6 not seen on previous exam. There is now a right internal jugular port catheter, tip near cavoatrial junction. There is no infiltrate, pericardial or pleural fluid, or pneumothorax. Major airways are mostly patent, minimal dependent density in the distal trachea on the right more likely mucus. There is some coronary calcification. Thoracic aortic caliber is within normal limits. No significantly enlarged nodes are identified of the chest. There is linear likely atelectasis of the left lower lobe. IMPRESSION: 1. There is increased left subdiaphragmatic nodularity, also now small nodule projected superior to the left hemidiaphragm. 2. There is some coronary calcification. Abdomen pelvis FINDINGS: There is extensive mesenteric, retroperitoneal, and omental masses overall significantly larger. Largest more confluent left abdominal mesenteric and retroperitoneal mass measures on the order of 15.1 x 7.4 cm axial oblique dimensions by 15.3 cm cc, largest mass in this region previously about 5.9 x 3.5 cm, probable coalescence of multiple masses. There is significant enlargement of omental masses on the left, largest individual mass about 7.9 cm AP by 7.1 cm transverse by 7.4 cm cc., Previous largest mass in this region about 4.4 cm AP by 3.8 cm transverse by 4.7 cm cc. There is larger soft tissue mass in the ventral subcutaneous fat at the level of the umbilicus on the order of 5.9 cm transverse by 4.4 cm AP by 6 cm CC, previously about 2.7 cm transverse by 2.4 cm AP by 3.8 cm cc. There is a new left ventral abdominal subcutaneous mass image 21 series 3 about 2.4 cm transverse by 1.1 cm AP by 2.7 cm cc. There are larger masses in the left upper quadrant including in the subdiaphragmatic region abutting the marquez of the stomach. Largest mass in the region of left adrenal gland extending to the subdiaphragmatic region measures about 12 cm transverse by 11.3 cm AP by 15.4 cm cc, previously mass in this region on the order of 3.4 cm. Mass also obliterates the fat plane between the anterior medial margin of the left kidney. There are also other larger retroperitoneal masses. There are some larger masses of the right paracolic gutter, largest of these on the order of 4.9 cm versus previously 2.7 cm. Bowel is not significantly dilated, variably displaced by the masses. No free air is identified. There is no significant free fluid. Pancreas is completely obscured by the large masses. No obvious focal abnormality is identified of the liver allowing for noncontrast technique. 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 There is no hydronephrosis of either kidney. Gallbladder is present. IMPRESSION: 1.There has been significant interval progression of metastatic disease. Electronically signed by: Denys Allen MD (09/25/2019 9:53 AM) [id number]
== END | disposition home or self-care (01) ==
LOC: CT 07:37
PROVIDERS: ATTEND Internal Medicine Hematology & Oncology
DX: C7A.8 Other malignant neuroendocrine tumors (principal); I25.10 Atherosclerotic heart disease of native coronary artery without angina pectoris; R91.1 Solitary pulmonary nodule; N28.89 Other specified disorders of kidney and ureter
CPT/HCPCS: 71250; 74176; Q9966